=== PATIENT | male | born 1995 | race Caucasian/White ===

== ENCOUNTER 2017-08-11 18:51 | Emergency (ER) | payer MEDICAID, SELFPAY ==
[2017-08-11 18:52] VITALS: BP 158/87; PULSE 78; RESP 16; TEMP 36.8; O2SAT 97; BMI 31.0
--- NOTE | 2017-08-11 20:12 | CT_ITS ---
STUDY: CT ABDOMEN AND PELVIS WITH CONTRAST REASON FOR EXAM: Male, 22 years old. Right lower quadrant pain RADIATION DOSAGE (If Supplied By Facility): CTDIvol = ( 17.62 ) mGy, DLP = ( 690.89 ) mGycm TECHNIQUE: Transaxial images were obtained from the dome of the diaphragm to the symphysis pubis without oral contrast. 100ml ml of Isovue 300 contrast was administered. Sagittal and coronal images were reconstructed. Individualized dose optimization techniques were used for this CT. COMPARISON: May 25, 2015. FINDINGS: The visualized lung bases demonstrate 2 to 3 mm nonspecific peripheral nodules. The visualized portions of the heart are within normal limits. Normal liver. Normal gallbladder and extrahepatic biliary system. Normal spleen. Normal pancreas. Normal bilateral adrenal glands. Mild hydronephrosis of the right kidney right hydroureter. Obstructive stone is noted at the distal right ureter measuring 4 mm. 7 mm cyst in the left kidney. Normal visualized stomach. Normal small intestine. Normal colon. The appendix is not visualized. Normal abdominal aorta. Normal inferior vena cava. Normal retroperitoneum.. Subcentimeter mesenteric nodes. Normal urinary bladder. Small fatty umbilical hernia abdominal wall. Normal osseous structures. CT/Abdomen/Pelvis W IV Cont ONLY IMPRESSION: Right hydronephrosis with hydroureter. Obstructing distal right ureteral stone is noted. Left renal cyst. Small fatty umbilical hernia. Nonspecific peripheral nodular densities in the lung bases. Nonspecific subcentimeter mesenteric nodes. Electronically Signed: Gregor Shirley DO at 21:51 EST Tel [phone], Service support ,
[2017-08-11] MEDS: Ondansetron 4 MG/2 ML Vial IV (20:30)
[2017-08-11 20:34] VITALS: BP 141/76; PULSE 66; RESP 16; O2SAT 97
[2017-08-11 20:54] LABS: Absolute Lymphocyte Count 3.49 X10^3/ul (0.83-4.51); Absolute Neutrophil Count 4.9 X10^3/uL (2.0-7.7); Basophil# 0.06 X10^3/uL; Basophil% 0.7 % (0-1); Eosinophil# 0.14 X10^3/uL; Eosinophils% 1.5 % (0-5); Hematocrit 41.9 % (40-54); Hemoglobin 14.4 g/dl (13.0-16.5); Lymphocyte # 3.49 X10^3/ul (4.0); Lymphocyte % 37.8 % (19-41); Mean Corp Hgb Conc 34.4 g/gl (32-36); Mean Corpuscular Volume 84.3 fL (80-94); Mean Platelet Vol. 9.7 fl (6.2-12.0); Monocyte% 6.5 % (0-10); Neutrophil # 4.93 X10^3/uL (2.7-7.7); Neutrophil % 53.4 % (47-70); Platelet Count 351 K/mm3 (150-450); RBC Distribution Width CV 12.9 % (11.6-14.6); RBC Distribution Width SD 38.9 fl (35.1-43.9); Red Blood Count 4.97 M/mm3 (4.6-6.2); White Blood Count 9.2 K/mm3 (4.4-11.0)
[2017-08-11 20:55] LABS: POSITIVE COUNT NO; POSITIVE DIFFERENTIAL NO; POSITIVE MORPHOLOGY NO
[2017-08-11 21:54] LABS: Bacteria 0 SEEN /hpf (None Seen); Mucous, Urine 0 SEEN /hpf (<or=2+); Squamous Epithelial Cells - UA 0 SEEN /hpf (0-5); White Blood Cells 0 SEEN /hpf (0-5)
[2017-08-11 21:59] LABS: Color, Urine Yellow (Yellow); Glucose, Dipstick Normal (Normal); Ketone-Dipstick Negative (Negative); Leukocyte Esterase-Dipstick Negative /ul (Negative); Nitrite-Dipstick Negative (Negative); Occult Blood-Urine 250 /ul (Negative); Protein-Dipstick Negative (Negative); Specific Gravity, Urine 1.005 (1.002-1.030); Urine Bilirubin Dipstick Negative (Negative); Urine Clarity Clear (Clear); Urine Urobilinogen Normal (Normal)
[2017-08-11 22:07] LABS: Red Blood Cells-Urine 10-25 SEEN /hpf (0-5)
--- NOTE | 2017-08-11 23:00 | ED.DCSUM_ITS ---
- ER Visit Summary Date of Service: 08/11/17 Chief Complaint: Right lower quadrant and side pain History of Present Illness: The patient is a 22 M states last evening he had some discomfort on the side. He now complains of pain that he localizes the right lower quadrant. He states it hurts to cough and walk. Denies dysuria, frequency, urgency or hematuria. He denies history of renal ureterolithiasis. There is no family history of renal ureterolithiasis. Denies history of hernia. He denies history of trauma. He denies fever, chills night sweats. He denies anorexia. Does complain of nausea without vomiting. He denies change in bowel movement. Past medical history negative past surgical history negative Physical Examination: vital signs remarkable blood pressure 141/76. He appears uncomfortable. Head is atraumatic normocephalic. Pupils are equal round reactive. Extraocular muscles are intact. TMs are pearly white with landmarks noted. Nares patent with no drainage. Posterior pharynx without erythema or exudate. Uvula is midline. There is no dysphonia or dysphasia. Trachea is midline. There is no stridor with auscultation of the neck. Heart is regular without murmur, gallop or rub. S1 and S2 are normal. Lungs are clear to auscultation with good movement of air bilaterally. Abdomen is remarkable for tenderness in the right lower quadrant with guarding. He has no CVA tenderness noted. He has a small umbilical defect. There is no evidence of inguinal hernia or inguinal lymphadenopathy. Testes are descended bilaterally with no testicular epididymal tenderness. Cremasteric reflex is positive bilaterally. There is no penile lesions or discharge noted. He is circumcised. He has no CVA tenderness. Test Results: White count is 9.2 thousand with normal differential. UA is unremarkable. He has 5-10 RBCs. There is no evidence infection. CT of the abdomen with IV contrast reveals a distal ureteral stone with hydroureteronephrosis. No other anomalies noted. Emergency Department Course and Treatment: As established he was medicated with 4 mrem of morphine and 4 mg of Zofran. Since he has tenderness that is reproducible right lower quadrant and pain with movement and walking concerned this represents appendicitis. Differential would include ureteral lithiasis and possible hernia. Treatment Plan: Patient was discharged with prescription for Kiln, Naprosyn and Flomax. Disposition: Discharge with outpatient follow-up with urology, Dr. Ortiz Impression: Right sided pain secondary to obstructing ureteral lithiasis with hydronephrosis and ureter This note was generated with [employer] dictation software. It may contain incorrect words, spelling, and punctuation that were not noted in review of the chart prior to signing ED Disposition - Plan for ED Patient: Disposition: Home or Assisted Living Chief Complaint: Male Pain/Injury Instructions: ED Stone Renal W Colic Prescriptions: Hydrocodone Bitart/Apap 5-325 [Kiln 5MG-325MG] 1 tab PO Q4H PRN PRN 5 Days #20 tab PRN Reason: Pain Tamsulosin HCl [Flomax] 0.4 mg PO DAILY #10 cap Naproxen [Naprosyn] 500 mg PO BID #14 tab Referrals: Nilo Heredia MD [Primary Care Provider] - Servando Ortiz MD [STAFF PHYSICIAN] - 5-7 Days
[2017-08-11] MEDS: HYDROcodone Bitartrate/Apap 5/325 Tablet PO (23:16)
[2017-08-11 23:18] VITALS: BP 119/68; PULSE 59; RESP 19; O2SAT 99
== END 2017-08-11 23:19 | disposition home or self-care (01) ==
PROVIDERS: Emergency Provider Emergency Medicine; Family Provider Pediatrics; PCP Pediatrics
DX: N13.2 Hydronephrosis with renal and ureteral calculous obstruction (principal); R10.31 Right lower quadrant pain; E66.9 Obesity, unspecified
CPT/HCPCS: 74177; 81001; 85025; 96374; 96375; 99283; Q9967; A4216; J2405

== ENCOUNTER 2017-08-27 16:14 | Emergency (ER) | payer MEDICAID, SELFPAY ==
[2017-08-27 16:15] VITALS: BP 143/74; PULSE 81; RESP 18; TEMP 36.8; O2SAT 99; BMI 31.8
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
[2017-08-27 18:24] VITALS: PULSE 87; RESP 14; O2SAT 98
== END 2017-08-27 18:24 | disposition home or self-care (01) ==
PROVIDERS: Emergency Provider Emergency Medicine; Family Provider Pediatrics; PCP Pediatrics
DX: S93.402A Sprain of unspecified ligament of left ankle, initial encounter (principal); X58.XXXA Exposure to other specified factors, initial encounter; Y93.9 Activity, unspecified; Y92.9 Unspecified place or not applicable; Z87.81 Personal history of (healed) traumatic fracture
CPT/HCPCS: 73610; 99282; A4216

== ENCOUNTER 2017-10-21 18:49 | Emergency (ER) | payer MEDICAID, SELFPAY ==
[2017-10-21 18:49] VITALS: BP 145/75; PULSE 60; RESP 14; TEMP 36.7; O2SAT 97; BMI 29.0
--- NOTE | 2017-10-21 19:47 | ED.VISSUMM ---
- ER Visit Summary Date of Service: 10/21/17 Chief Complaint: Back pain History of Present Illness: The patient is a 22 M who presents with back pain that began yesterday. Patient states he was lifting when the pain began. Patient denies any specific trauma or injury. Patient states the pain is sharp and localized to the right lower lumbar area. Patient states pain is worse with bending and twisting. Patient denies any paresthesias or weakness. Patient denies any radiation of the pain. Patient denies any bowel or bladder changes. Patient denies any saddle anesthesia. Physical Examination: Vital signs are stable. Patient is afebrile. Patient is in no acute distress. Musculoskeletal exam reveals tenderness and muscle spasm over the right lower lumbar paraspinal muscles. Range of motion was slightly limited in all motions of the lumbar spine secondary to pain. Straight leg raises were negative bilaterally. Strength is 5/5 bilaterally upper and lower extremities. There are no sensory deficits noted. The remaining physical exam is within normal limits. Treatment Plan: Patient was advised that this most likely a muscular strain. Patient was given prescriptions for Naprosyn and Flexeril. Patient was instructed to follow-up with his primary care physician in 7-10 days. Patient understood and was agreeable with the plan. All questions were answered. Disposition: Discharge home Impression: Acute lumbosacral strain This note was generated with [employer] dictation software. It may contain incorrect words, spelling, and punctuation that were not noted in review of the chart prior to signing ED Disposition - Plan for ED Patient: Disposition: Home or Assisted Living Chief Complaint: Back Diagnosis: Acute lumbar myofascial strain Instructions: ED Sprain Strain Lumbar Prescriptions: Cyclobenzaprine [Flexeril] 10 mg PO QHS PRN PRN #20 tab PRN Reason: Muscle Spasm Naproxen [Naprosyn] 500 mg PO BID PRN #20 tab Referrals: Nilo Heredia MD [Primary Care Provider] -
[2017-10-21 19:56] VITALS: BP 135/65; PULSE 69; RESP 18; O2SAT 97
== END 2017-10-21 19:57 | disposition home or self-care (01) ==
PROVIDERS: Emergency Provider Emergency Medicine; Family Provider Pediatrics; PCP Pediatrics
DX: S39.012A Strain of muscle, fascia and tendon of lower back, initial encounter (principal); X50.9XXA Other and unspecified overexertion or strenuous movements or postures, initial encounter; Y93.9 Activity, unspecified; Y92.9 Unspecified place or not applicable; Z90.89 Acquired absence of other organs
CPT/HCPCS: 99282

== ENCOUNTER 2017-10-23 20:25 | Emergency (ER) | payer MEDICAID, SELFPAY ==
[2017-10-23 20:26] VITALS: BP 137/67; PULSE 73; RESP 18; TEMP 36.7; O2SAT 98; BMI 32.4
--- NOTE | 2017-10-23 20:41 | RAD_ITS ---
STUDY: X-RAY - LEFT TIBIA AND FIBULA REASON FOR EXAM: Male, 22 years old. Remote fracture, pain TECHNIQUE: 2 view(s) of the tibia and fibula were obtained. COMPARISON: None. FINDINGS: There is healed fracture deformity of the distal fibular shaft. There is no acute fracture. There is no osseous destruction. There is no periosteal reaction. RAD/Tibia & Fibula 2 Views IMPRESSION: Healed fracture distal fibular shaft No acute fracture Electronically Signed: Vincent Diaz MD at 21:17 EDT Tel , Service support ,
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
--- NOTE | 2017-10-23 21:40 | US_ITS ---
STUDY: VENOUS DOPPLER ULTRASOUND - LEFT LOWER EXTREMITY REASON FOR EXAM: Male, 22 years old. LT LATERAL CALF PAIN TECHNIQUE: Ultrasound evaluation of the deep vein system to include macario-scale imaging and compression was performed. Macario-scale imaging and Doppler sonographic evaluation, including duplex spectral analysis and qualitative color flow sonography, was performed. COMPARISON: None. FINDINGS: Common Femoral Vein: Normal compression, spontaneity and augmentation. Normal color Doppler. Common Femoral Vein/Greater Saphenous Junction: Normal compression, spontaneity and augmentation. Normal color Doppler. Deep Femoral Vein: Normal compression, spontaneity and augmentation. Normal color Doppler. Femoral Proximal: Normal compression, spontaneity and augmentation. Normal color Doppler. Femoral Middle: Normal compression, spontaneity and augmentation. Normal color Doppler. Femoral Distal: Normal compression, spontaneity and augmentation. Normal color Doppler. Popliteal Vein: Normal compression, spontaneity and augmentation. Normal color Doppler. Posterior Tibial Vein: Normal compression, spontaneity and augmentation. Normal color Doppler. Peroneal Vein: Normal compression, spontaneity and augmentation. Normal color Doppler. US/Venous Duplex Imag/Limited/Uni IMPRESSION: Normal venous Doppler ultrasound of the lower extremity. Electronically Signed: Eagle Flores MD at 22:11 EDT , Service support ,
--- NOTE | 2017-10-23 22:17 | ED.DEP ---
ED Disposition - Plan for ED Patient: Chief Complaint: Lower Extremity Injury Instructions: ED Contusion Lower Ext Prescriptions: Naproxen [Naprosyn] 500 mg PO BID PRN #20 tablet Referrals: Nilo Heredia MD [Primary Care Provider] -
[2017-10-23 22:42] VITALS: RESP 16
== END 2017-10-23 22:44 | disposition home or self-care (01) ==
LOC: ED 21:10
PROVIDERS: Emergency Provider Emergency Medicine; Family Provider Pediatrics; PCP Pediatrics
DX: M79.662 Pain in left lower leg (principal); Z87.81 Personal history of (healed) traumatic fracture
CPT/HCPCS: 73590; 93971; 99282

== ENCOUNTER 2017-11-12 16:10 | Emergency (ER) | payer MEDICAID, SELFPAY ==
[2017-11-12 16:10] VITALS: BP 163/74; PULSE 78; RESP 16; TEMP 36.8; O2SAT 99; BMI 32.3
--- NOTE | 2017-11-12 16:45 | RAD_ITS ---
STUDY: X-RAY - RIGHT KNEE REASON FOR EXAM: Male, 22 years old. Pain. Recent pop while dancing TECHNIQUE: 4 view(s) of the knee. COMPARISON: None. FINDINGS: Normal visualized distal femur. Normal visualized proximal tibia and fibula. Normal proximal tibiofibular articulation. There is no demonstrated fracture. Normal medial femorotibial compartment. Normal lateral femorotibial compartment. Normal patellofemoral articulation. The soft tissue structures are unremarkable. RAD/Knee 4 or More Views IMPRESSION: Normal x-ray examination of the knee. Electronically Signed: Devon De Dios MD at 17:38 EDT , Service support ,
--- NOTE | 2017-11-12 17:02 | ED.VISSUMM ---
- ER Visit Summary Date of Service: 11/12/17 Chief Complaint: [Right knee injury] History of Present Illness: The patient is a 22 M [presents the emergency department with injury to the right knee that occurred about a week ago. Patient states that he was dancing when he felt a couple of pops in his right knee. Patient had discomfort ever since that time especially with bending the knee. Patient has been able to ambulate without too much difficulty. Patient rates his pain a 6 out of 10.] Physical Examination: HEENT-PERRLA, EOMI. Cranial nerves II through XII grossly intact. TMs clear. Mucous membranes moist. No adenopathy. Cardiovascular-regular rate and rhythm without murmur or ectopy Lungs-clear to auscultation, chest wall stable without crepitus or subcu emphysema Abdomen-normoactive bowel sounds, soft, nontender, no rebound or rigidity, no peritoneal signs. Extremities-intact ?4, normal range of motion, normal pulses, atraumatic[]. Right knee-patient has minor joint effusion. Patient has mild diffuse tenderness to the medial lateral joint lines. Skin normal range of motion through flexion extension of the knee. Patient is ligamentously stable. Neurovascularly intact distally. Test Results: [X-rays of the right knee read by myself as no acute fractures] Emergency Department Course and Treatment: [Patient will be given a knee immobilizer and he refused crutches] Treatment Plan: [Discharged home in stable condition]. Patient will be referred to orthopedics for follow-up.. Patient understands he may need further imaging such as possibly MRI to evaluate further. Patient understands I cannot rule out a ligamentous or meniscal injury. Disposition: Discharged home stable condition [] Impression: [Right knee sprain-possible internal derangement] This note was generated with [employer] dictation software. It may contain incorrect words, spelling, and punctuation that were not noted in review of the chart prior to signing ED Disposition - Plan for ED Patient: Chief Complaint: Lower Extremity Injury Referrals: Nilo Heredia MD [Primary Care Provider] -
--- NOTE | 2017-11-12 17:05 | ED.DEP ---
ED Disposition - Plan for ED Patient: Chief Complaint: Lower Extremity Injury Instructions: ED Meniscal Injury Knee Poss Prescriptions: Naproxen [Naprosyn] 500 mg PO BID PRN #20 tab Referrals: Nilo Heredia MD [Primary Care Provider] - Lincoln Burt DO [STAFF PHYSICIAN] - 5-7 Days
[2017-11-12 17:26] VITALS: BP 126/57; PULSE 62; RESP 16; O2SAT 100
== END 2017-11-12 17:27 | disposition home or self-care (01) ==
LOC: ED 17:24
PROVIDERS: Emergency Provider Emergency Medicine; Family Provider Pediatrics; PCP Pediatrics
DX: S83.91XA Sprain of unspecified site of right knee, initial encounter (principal); X50.1XXA Overexertion from prolonged static or awkward postures, initial encounter; Y93.41 Activity, dancing; Y92.9 Unspecified place or not applicable
CPT/HCPCS: 73564; 99282

== ENCOUNTER 2017-11-13 18:25 | Emergency (ER) | payer OTHER, MEDICAID, SELFPAY ==
[2017-11-13 18:26] VITALS: BP 147/71; PULSE 75; RESP 18; TEMP 36.9; O2SAT 98; BMI 32.2
[2017-11-13] MEDS: Naproxen 500 MG Tablet PO (18:59)
--- NOTE | 2017-11-13 19:41 | ED.DCSUM_ITS ---
- ER Visit Summary Date of Service: 11/13/17 Chief Complaint: Laceration History of Present Illness: The patient is a [address] Heredia. He is right-hand dominant. He cut his left index and ring fingers with a bread knife at work. He reports he has a sharp, throbbing pain is 3 out of 10 with movement. He denies any paresthesias distally. His tetanus is up-to-date. Physical Examination: Vitals: Stable. Afebrile. General: Well-nourished and well-developed. Head: Normocephalic atraumatic. Neck: Supple, no lymphadenopathy. No JVD. Nontender. Cardiovascular: Regular rate and rhythm. No murmurs. Respiratory: No respiratory distress. Clear to auscultation bilaterally. Abdominal: Soft, nontender, nondistended, normal bowel sounds. No guarding, rebound, or peritoneal signs. Back: Nontender. Extremities: Avulsion of the most superficial portion of the distal phalanx of his left middle finger. This does not extend into the dermis. He has a 1.5 cm laceration over the distal phalanx of his index finger. There is no active bleeding. He is neurovascular intact distally.. Skin: Normal color, no rash. Neurologic: Alert and oriented ?3. Cranial nerves II through XII are intact. Normal strength and sensation. Psych: Normal affect. Emergency Department Course and Treatment: Patient was treated with naproxen. He had his index finger repaired. He tolerated it well. Treatment Plan: Patient be discharged instructions to follow-up [facility] in 10-14 days for suture removal. Return to the emergency department for any worsening symptoms. Disposition: To home in improved and stable condition. Impression: 1. Laceration left index finger, 1.5 cm, repaired. 2. Avulsion left middle fingertip. Procedure note: Wound was cleansed with chlorhexidine soap. Anesthetized with 1% lidocaine without epinephrine. Copiously irrigated with normal saline. Wound was explored there is no foreign material present. It was closed with 3 simple interrupted 4- 0 ethilon sutures. The patient tolerated it well. This note was generated with [employer] dictation software. It may contain incorrect words, spelling, and punctuation that were not noted in review of the chart prior to signing ED Disposition - Plan for ED Patient: Disposition: Home or Assisted Living Chief Complaint: Laceration Instructions: ED Laceration Hand Referrals: [facility] [GROUP OF PHYSICIANS] - 10-14 Days suture removal
[2017-11-13 19:56] VITALS: BP 122/65; PULSE 68; RESP 17; O2SAT 98
== END 2017-11-13 20:00 | disposition home or self-care (01) ==
LOC: ED 18:50
PROVIDERS: Emergency Provider Emergency Medicine; Family Provider Pediatrics; PCP Pediatrics
DX: S61.211A Laceration without foreign body of left index finger without damage to nail, initial encounter (principal); S61.213A Laceration without foreign body of left middle finger without damage to nail, initial encounter; W26.0XXA Contact with knife, initial encounter; Y93.9 Activity, unspecified; Y92.9 Unspecified place or not applicable; Y99.0 Civilian activity done for income or pay
CPT/HCPCS: 12001; 99283

== ENCOUNTER 2017-11-19 19:00 | Emergency (ER) | payer MEDICAID, SELFPAY ==
--- NOTE | 2017-11-19 19:00 | DT_ITS ---
This patient was seen during an EMR downtime November 17, 2017 - November 24, 2017. This patient may have a combination of paper and electronic documentation or all paper documentation. All documentation is viewable within the e-chart portion of [employer] for each patient visit.
== END 2017-11-19 20:02 | disposition home or self-care (01) ==
LOC: ED 11-20 14:58
PROVIDERS: Emergency Provider Emergency Medicine; Family Provider Pediatrics; PCP Pediatrics
DX: T81.4XXA Infection following a procedure, initial encounter (principal)
CPT/HCPCS: 99284

== ENCOUNTER 2017-12-29 11:12 | Day surgery (SDC) | payer MEDICAID, SELFPAY ==
[2017-12-29 11:30] VITALS: BP 142/75; PULSE 78; RESP 16; TEMP 36.8; O2SAT 99; BMI 32.1
[2017-12-29] MEDS: Cefazolin 2 GM in 0.9% Normal Saline 100 ML IV (13:08)
--- NOTE | 2017-12-29 13:14 | DCINST_ITS ---
Discharge Diet: No Restrictions Discharge Activity: May Not Drive Return to work on:: 01/13/18 May shower in (days): 3 Ice area for (Minutes): 20 - Ice area for 20 minutes each hour while awake Weight Bearing Status: Weight bearing as tolerated Keep extremity elevated above heart level: Operative Extremity Call your doctor if your incision/area has: Continuous Slow Oozing, Sudden Increased Bleeding, Increased Pain/ Swelling, Increased Redness, Foul Smelling Discharge Call your doctor if you observe: Fever of 101 or Higher, Coldness, Increased Pain, Numbness or Tingling, Change in Color Suture Line Care: Avoid Pulling/Pushing Change Dressing in (Days):: 3 Remove Dressing in (days):: 3 Cleanse incision/area with: Soap & Water - after 3 days Allergies/Adverse Reactions: Allergies tramadol Allergy (Verified 12/22/17 11:24) Rash Medications to take at Discharge Naproxen [Naprosyn] 500 mg PO BID PRN #20 tab 11/12/17 Test Results: Test results from this visit will be discussed in further detail at your follow- up appointment, if applicable. Please Follow Up With: Lincoln Burt DO When: as scheduled
[2017-12-29] MEDS: Bupiv/Epi 0.5% Mpf 30 ML Vial (13:56)
--- NOTE | 2017-12-29 13:58 | OP.PCM_ITS ---
Report of Operation Date of Procedure: 12/29/17 Pre-Operative Diagnosis: Posterior horn medial meniscus tear right knee Post-Operative Diagnosis: Same Surgery/Procedure Performed:: Right knee arthroscopy with partial medial meniscectomy Description of Surgical Findings:: Large incarcerated radial tear posterior horn Type of Anesthesia:: General Anesthesiologist: Clement Paredes Specimen's removed: meniscus Estimated Blood Loss (mL): 5 Fluids Replaced: See anesthesia report Description of Procedure: Indications: Robert is a 22-year-old male who injured his knee. Preoperative MRI reveals large tear of the posterior horn of the medial meniscus. Patient has failed conservative measures and at this point has elected to undergo the above procedure. Procedure description: The patient was greeted in the preoperative area. The right knee was marked with surgical marker. Preoperative antibiotics were administered. The patient was then taken to the operating suite and placed in a supine position on operating room table. After adequate anesthesia was obtained and airway was secured a well-padded tourniquet was placed on patient' s affected extremity. Leg was then prepped and draped in usual sterile fashion. Surgical timeout was performed and confirmed with all present and surgery was commenced. Standard anteromedial anterolateral portals were made and a 30? arthroscope was then inserted into the knee. Patient had mild lateral patellar tracking. No loose bodies were noted in the medial or lateral gutters. Medial compartment was then entered which revealed a large tear of the posterior horn of the medial meniscus with a radial type flap tear large portion of this was incarcerated in the intercondylar notch behind the posterior condyle of the medial femoral condyle. This was then trimmed and the torn portion was removed creating a nice stable meniscal remnant was then smoothed with the shaver. Total of 80% of the posterior horn of the medial meniscus was removed. At this point all instruments were removed. Arthroscopic portals were closed in a standard fashion. 30 cc of 0.5% Marcaine was then injected into the knee. Well-padded nonadherent dressing was applied and secured with an Jw wrap. - Admit VTE Documentation VTE Present on Admission: Yes VTE Mechan Device Prophylaxis: SCD's, Thigh High MARY Hose VTE Pharm Prophylaxis ordered?: No Reason prophylaxis not ordered:: Procedure Not Indicated
[2017-12-29 14:12] VITALS: BP 136/64; BP 142/75; PULSE 88; RESP 18; TEMP 36; O2SAT 92
[2017-12-29 14:15] VITALS: BP 142/75; BP 147/50; PULSE 101; PULSE 96; RESP 16; O2SAT 92; O2SAT 93
[2017-12-29 14:30] VITALS: BP 130/65; BP 142/75; PULSE 94; RESP 16; O2SAT 98
[2017-12-29 14:45] VITALS: BP 136/61; BP 142/75; PULSE 90; RESP 18; TEMP 36.5; O2SAT 97
[2017-12-29] MEDS: HYDROcodone Bitartrate/Apap 5/325 Tablet PO (14:58)
[2017-12-29 16:36] VITALS: BP 123/64; BP 142/75; PULSE 93; RESP 16; TEMP 36.5; O2SAT 100
== END 2017-12-29 16:20 | disposition home or self-care (01) ==
LOC: SDC 11:13 → AC 11:14
PROVIDERS: Family Provider Pediatrics; PCP Pediatrics; Visit Provider Orthopaedic Surgery
PROC: (CPT 29870; principal; 2017-12-29 12:55)
DX: S83.241A Other tear of medial meniscus, current injury, right knee, initial encounter (principal); X58.XXXA Exposure to other specified factors, initial encounter; Y93.41 Activity, dancing; Y92.9 Unspecified place or not applicable
CPT/HCPCS: 01400; 29881; J7120; J2405

== ENCOUNTER 2018-02-20 19:44 | Emergency (ER) | payer MEDICAID, SELFPAY ==
[2018-02-20 19:46] VITALS: BP 138/71; PULSE 73; RESP 16; TEMP 37; O2SAT 97; BMI 31.4
--- NOTE | 2018-02-20 20:26 | ED.VISSUMM ---
- ER Visit Summary Date of Service: 02/20/18 Chief Complaint: Right wrist pain and back pain History of Present Illness: The patient is a [address] Heredia. He reports she has right wrist pain and began today. He describes a stabbing, aching pain is now 10 hours and 710 currently. Is worsened by bending or movement. Is relieved by ice and Aleve. He denies any trauma. No fall, MVA, or change in activity. Patient reports that his low back pain is been present for 2 months. His sharp pain that is 5 out of 10 currently. Zeta 10 with movement. There is no numbness, tingling, or weakness in his legs. No groin numbness. No problems with his bowels or his bladder. No radiation of this pain. Physical Examination: Vitals: Stable. Afebrile. General: A&O x 3. NAD. Cardiovascular exam: Regular rate and rhythm, no murmur, rub or gallop. Respiratory exam: Clear to auscultation bilaterally. No wheezes or stridor. Abdominal exam: Soft, nontender, nondistended, normal bowel sounds. No peritoneal signs. Back: Diffuse moderate tenderness to palpation over the lumbar spine and the paraspinous musculature in the lumbar region. No point tenderness. Negative straight leg bilaterally. 5/5 DF, PF, EHL bilaterally. Normal sensation to light touch throughout. Extremity: Mild tenderness palpation over the right ulnar styloid. No soft tissue swelling. No contusion. Full range of motion without any difficulty.. Test Results: Patient refused x-rays. Emergency Department Course and Treatment: Patient was treated with naproxen. Treatment Plan: I had a prolonged discussion with the patient about the use of opiate-based medications. I do not feel that these are indicated or in his best interest. He will be discharged instructions use Tylenol and/or ibuprofen for pain. Follow-up with Dr. Heredia in 3-5 days if not improving. I suggested a physical therapy would be the most reasonable treatment for his back pain potentially his wrist pain as well. He will be placed in a Velcro wrist splint. Disposition: To home in improved and stable condition. Impression: 1. Right wrist sprain. 2. Low back pain, chronic. This note was generated with [employer]ation software. It may contain incorrect words, spelling, and punctuation that were not noted in review of the chart prior to signing ED Disposition - Plan for ED Patient: Disposition: Home or Assisted Living Chief Complaint: Upper Extremity Injury Instructions: ED Sprain Wrist Prescriptions: Naproxen [Naprosyn] 500 mg PO BID #20 tablet Referrals: Nilo Heredia MD [Primary Care Provider] - 1 Week if not improving
[2018-02-20] MEDS: Naproxen 250 MG Tablet 500 MG PO (20:41)
== END 2018-02-20 20:43 | disposition home or self-care (01) ==
PROVIDERS: Emergency Provider Emergency Medicine; Family Provider Pediatrics; PCP Pediatrics
DX: S63.501A Unspecified sprain of right wrist, initial encounter (principal); X58.XXXA Exposure to other specified factors, initial encounter; Y93.9 Activity, unspecified; Y92.9 Unspecified place or not applicable; M54.5 Low back pain; G89.29 Other chronic pain
CPT/HCPCS: 99284

== ENCOUNTER 2018-03-02 19:33 | Emergency (ER) | payer MEDICAID, SELFPAY ==
[2018-03-02 19:34] VITALS: BP 162/77; PULSE 88; RESP 14; TEMP 35.8; O2SAT 98; BMI 32.1
[2018-03-02 19:52] VITALS: BP 130/71; PULSE 91; RESP 16; O2SAT 98
--- NOTE | 2018-03-02 20:04 | ED.RN ---
RN CALLED FOR EKG, PULLED OLD EKGS FOR
--- NOTE | 2018-03-02 20:05 | EKG12_ITS ---
Test Reason : CP Blood Pressure : / mmHG Vent. Rate : 087 BPM Atrial Rate : 087 BPM P-R Int : 150 ms QRS Dur : 094 ms QT Int : 334 ms P-R-T Axes : 048 013 -15 degrees QTc Int : 401 ms Normal sinus rhythm with sinus arrhythmia Normal ECG Confirmed by ROSANNA CONTRERAS, TRANG ([id number]), editor magazine AMY AGUILAR ([id number]) on 03/04/2018 2:12:54 PM Referred By: MARAH Confirmed By:TRANG MARTE MD
--- NOTE | 2018-03-02 20:08 | RAD_ITS ---
STUDY: X-RAY CHEST REASON FOR EXAM: Male, 22 years old. Left-sided chest pain TECHNIQUE: AP portable COMPARISON: None. FINDINGS: There is nonspecific elevation of right hemidiaphragm with minor basilar atelectasis. Left lung is clear. There is no demonstrated pleural abnormality. Normal size heart. Normal mediastinum and alcides. Normal visualized pulmonary arteries. Normal visualized aortic arch and descending thoracic aorta. Normal visualized thoracic spine. Normal visualized ribs, clavicles, and shoulders. There is no demonstrated abnormality of the visualized soft tissue structures of the upper abdomen. RAD/Chest 1 View (Portable) IMPRESSION: Elevated right hemidiaphragm and mild basilar atelectasis Electronically Signed: Duglas Cheung MD at 20:40 EDT , Service support ,
[2018-03-02] MEDS: Ondansetron 4 MG/2 ML Vial IV (20:17)
[2018-03-02 20:37] LABS: Absolute Lymphocyte Count 1.62 X10^3/ul (0.83-4.51); Absolute Neutrophil Count 2.9 X10^3/uL (2.0-7.7); Basophil# 0.08 X10^3/uL; Basophil% 1.5 % (0-1); Eosinophil# 0.06 X10^3/uL; Eosinophils% 1.2 % (0-5); Hematocrit 41.5 % (40-54); Hemoglobin 14.4 g/dl (13.0-16.5); Lymphocyte # 1.62 X10^3/ul (4.0); Lymphocyte % 31.2 % (19-41); Mean Corp Hgb Conc 34.7 g/gl (32-36); Mean Corpuscular Volume 83.7 fL (80-94); Mean Platelet Vol. 9.5 fl (6.2-12.0); Monocyte# 0.52 X10^3/uL; Neutrophil # 2.91 X10^3/uL (2.7-7.7); Neutrophil % 55.9 % (47-70); Platelet Count 295 K/mm3 (150-450); RBC Distribution Width CV 12.5 % (11.6-14.6); RBC Distribution Width SD 37.9 fl (35.1-43.9); Red Blood Count 4.96 M/mm3 (4.6-6.2); White Blood Count 5.2 K/mm3 (4.4-11.0)
[2018-03-02 20:38] LABS: POSITIVE COUNT NO; POSITIVE DIFFERENTIAL NO; POSITIVE MORPHOLOGY NO
[2018-03-02 20:59] LABS: D-Dimer Quantitative (DVT/PE) 0.32 FEU/ug/m (0.27-0.49)
[2018-03-02 21:02] LABS: Anion Gap 6 (5-15); BUN 10 mg/dL (7-18); BUN/Creat Ratio 8.5 RATIO (10-20); Calcium,Total 8.6 mg/dL (8.5-10.1); Chloride 106 mmol/L (98-107); Creatinine, Serum 1.17 mg/dL (0.70-1.30); EST Glomerular Filtration Rate 83 mL/min (>60); Est Glom Filt Rate - Afr Amer 101 mL/min (>60); Estimated Creatinine Clearance 93.37 ml/min; Glucose 101 mg/dL (74-106); Potassium 3.6 mmol/L (3.5-5.1); Sodium Level 139 mmol/L (136-145)
[2018-03-02 22:04] VITALS: PULSE 91; RESP 23; O2SAT 96
--- NOTE | 2018-03-02 22:07 | ED.VISSUMM ---
- ER Visit Summary Date of Service: 03/02/18 Chief Complaint: Chest pain History of Present Illness: The patient is a 22 M with left-sided chest pain that started early this morning. Nothing seemed to bring on or make it worse. No radiation of the pain. Associate with nausea, vomiting, and some shortness of breath. He never had anything like this in the past. No significant medical history. He did have a knee operation about 2 months ago where they repaired his meniscus. No history of DVT or PE. No history of aortic disease. He had a subjective fever earlier today. No cough or sputum. Physical Examination: Vital signs unremarkable. Afebrile. No acute distress. Alert and oriented. Sitting and breathing comfortably. Heart regular rate and rhythm. Lungs clear bilaterally. Abdomen soft and nontender. Extremities nontender with no edema. Skin appears normal in color. Test Results: EKG showed sinus rhythm at a rate of 87. No sign of acute ischemia or infarction pattern. CBC and BMP normal. Troponin normal. D-dimer negative. Chest x-ray showed an elevated right hemidiaphragm with mild basilar atelectasis but no other abnormal findings. Emergency Department Course and Treatment: Patient treated with Zofran and then Motrin. His workup was unremarkable. EKG and troponin unremarkable. No significant risks for ACS. D-dimer was negative making PE and dissection extremely unlikely. Nothing to suggest infection or sepsis. No GI issues. No musculoskeletal issues. Patient will take Motrin as needed for pain. Zofran as needed for nausea. Follow-up with primary care. Treatment Plan: As above Disposition: Discharged Impression: 1. Chest pain unclear etiology This note was generated with [employer] dictation software. It may contain incorrect words, spelling, and punctuation that were not noted in review of the chart prior to signing ED Disposition - Plan for ED Patient: Chief Complaint: Chest Pain Referrals: Nilo Heredia MD [Primary Care Provider] -
--- NOTE | 2018-03-02 22:10 | ED.DEP ---
ED Disposition - Plan for ED Patient: Chief Complaint: Chest Pain Instructions: ED Chest Pain Atypical Unkn Cause Prescriptions: Ondansetron [Zofran Odt] 4 mg PO Q8H PRN PRN #10 tab PRN Reason: Nausea Ibuprofen [Motrin] 800 mg PO TID PRN PRN #20 tab PRN Reason: Pain Referrals: Nilo Heredia MD [Primary Care Provider] -
[2018-03-02] MEDS: Ibuprofen 600 MG Tablet PO (22:20)
== END 2018-03-02 22:23 | disposition home or self-care (01) ==
LOC: ED 20:21
PROVIDERS: Emergency Provider Emergency Medicine; Family Provider Pediatrics; PCP Pediatrics
DX: R07.9 Chest pain, unspecified (principal); R11.2 Nausea with vomiting, unspecified; R06.00 Dyspnea, unspecified; J98.11 Atelectasis
CPT/HCPCS: 71045; 80048; 84484; 85025; 85379; 93005; 96374; 99285; A4216; J2405

== ENCOUNTER 2018-04-29 12:52 | Emergency (ER) | payer OTHER, MEDICAID, SELFPAY ==
[2018-04-29 12:55] VITALS: BP 134/70; PULSE 85; RESP 17; TEMP 36.7; O2SAT 98; BMI 30.5
--- NOTE | 2018-04-29 14:42 | ED.VISSUMM ---
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 Notes that the testicle itself is not painful and has not been. He states that the pain seems to have gotten worse during the night. He states the testicle itself is not painful. He has no urinary symptoms. He denies any bulging. No prior history of this. Physical Examination: Afebrile vital signs stable Gen: Well-nourished well-developed Head: Normocephalic atraumatic Eyes: Perrl EOMI ENT: TMs clear no rhinorrhea moist mucous membranes Neck: Supple no lymphadenopathy no JVD nontender CVS: Regular rate rhythm no murmurs normal S1-S2 Respiratory: No distress clear to auscultation bilaterally chest nontender Abdomen: Soft nontender nondistended normal bowel sounds no masses : Patient is circumcised. The testicle is nontender. There is no epididymal tenderness. There is no fullness at the inguinal canal. No change with Valsalva. Back: Nontender Extremity: Nontender no edema Skin: Normal color no rash Neuro: alert orientated ?3 CN II-XII intact normal strength sensation reflexes gait cerebellar Psych: Normal affect normal mood Emergency Department Course and Treatment: We will treat this as an inguinal strain. I do not palpate any hernia at the current time. The testicle is nontender. He will be placed on lifting restriction. He will follow-up with [facility] care Impression: 1. Inguinal strain This note was generated with [employer] dictation software. It may contain incorrect words, spelling, and punctuation that were not noted in review of the chart prior to signing ED Disposition - Plan for ED Patient: Disposition: Home or Assisted Living Chief Complaint: Male Pain/Injury Instructions: ED Hernia Inguinal Referrals: [facility] [GROUP OF PHYSICIANS] - 2 Days
[2018-04-29 14:59] VITALS: BP 136/79
== END 2018-04-29 15:00 | disposition home or self-care (01) ==
LOC: ED 14:53
PROVIDERS: Emergency Provider Emergency Medicine; Family Provider Pediatrics; PCP Pediatrics
DX: S39.011A Strain of muscle, fascia and tendon of abdomen, initial encounter (principal); X50.0XXA Overexertion from strenuous movement or load, initial encounter; Y93.9 Activity, unspecified; Y92.9 Unspecified place or not applicable
CPT/HCPCS: 99282

== ENCOUNTER 2018-11-29 11:01 | Emergency (ER) | payer MEDICAID, SELFPAY ==
[2018-05-04 16:54] VITALS: BMI 30.5
[2018-11-29 11:04] VITALS: BP 139/86; PULSE 91; RESP 13; TEMP 36.5; O2SAT 98; BMI 35.3
--- NOTE | 2018-11-29 11:18 | ED.DCSUM_ITS ---
History of Present Illness <Jeffery Anguiano - Last Filed: 11/29/18 11:26> Informant: Patient Onset: Yesterday Context: Gradual Onset Timing: Continuous Quality: aching Location: right ear Current Severity: Moderate Maximum Severity: Severe Worsened by: nothing Relieved by: nothing Associated Symptoms: ear drainage, decreased hearing Narrative: 23-year-old male who denies any medical history presents with right ear pain. Patient recently returned from vacation a couple of days ago where he was swimming in the ocean in the pool and over the past 2 days has had progressively worsening pain and drainage and redness to his right ear. No headache or dizziness. No decreased hearing. No vomiting. No sore throat or congestion. Prior similar symptoms: Yes Recent Illness/Hospitalization: No <Eddie Nance - Last Filed: 11/29/18 11:28> Chief Complaint: Ear Problem Past Medical History <Jeffery Anguiano - Last Filed: 11/29/18 11:26> Prior records reviewed: Yes Smoking Status: Never smoker <GoyoEddie - Last Filed: 11/29/18 11:28> - Allergies and Home Meds Allergies/Adverse Reactions: Allergies No Known Allergies Allergy (Verified 11/29/18 11:04) Primary Care Physician: Nilo Heredia MD [Primary Care Provider] - Review of Systems All systems negative except as indicated General: Denies: Chills, Fever ENT: Reports: Right ear pain. Denies: Bilateral ear pain, Rhinorrhea, Sore throat Cardiovascular: Denies: Chest pain Respiratory: Denies: Dyspnea, Cough <GoyoEddie - Last Filed: 11/29/18 11:28> Physical Exam Vital Signs/Narrative: Vital Signs Temp Pulse Resp BP Pulse Ox 11/29/18 11:04 97.7 F L 91 13 139/86 H 98 <Jeffery Anguiano - Last Filed: 11/29/18 11:26> Vital Signs/Narrative: Vital Signs Temp Pulse Resp BP Pulse Ox 11/29/18 11:04 97.7 F L 91 13 139/86 H 98 Inital Vital Signs reviewed: Yes General: Well nourished, Well developed, No Acute Distress Head: Normocephalic, Atraumatic Eyes: Perrl, EOMI ENT: Moist mucous membranes, No rhinorrhea, - - Patient has purulent drainage and swelling and redness of the right external ear canal, with difficulty visualizing tympanic membrane secondary to this. There is no mastoid tenderness or redness. Left external canal and tympanic membrane are both normal.. 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
== END 2018-11-29 11:35 | disposition home or self-care (01) ==
LOC: ED 11:29
PROVIDERS: Emergency Provider Physician Assistant Medical
DX: H60.91 Unspecified otitis externa, right ear (principal)
CPT/HCPCS: 99282

== ENCOUNTER 2019-10-06 22:14 | Emergency (ER) | payer MEDICAID, SELFPAY ==
[2019-10-06 22:15] VITALS: BP 163/88; PULSE 99; RESP 20; TEMP 35.8; O2SAT 98; BMI 36.2
--- NOTE | 2019-10-06 22:39 | CT_ITS ---
STUDY: CT BRAIN WITH AND WITHOUT CONTRAST REASON FOR EXAM: Male, 24 years old. HEADACHE X 2 HRS,PT HAVING INCREASED HEADACHES, NAUSEA, DIZZINESS AND RINGING IN EARS X 2 MONTHS RADIATION DOSAGE (If Supplied By Facility): CTDIvol = ( 44.99 ) mGy, DLP = ( 1580.97 ) mGycm TECHNIQUE: Transaxial CT imaging of the brain was performed pre and post contrast administration. The examination was performed with intravenous administration of 50ML ISOVUE 370. Individualized dose optimization techniques were used for this CT. COMPARISON: None. FINDINGS: Normal soft tissue structures. Normal calvarium. There is left middle ear and mastoid opacification. Normal size ventricles and extra-axial spaces for the patient''s age. Normal white matter tracts of the cerebral hemispheres. Normal basal ganglia and thalami. Normal brainstem. Normal cerebellum. There is no intracranial hemorrhage. There are no findings of an acute ischemic infarction. There is no mass or abnormal enhancement. Normal visualized paranasal sinuses. CT/Brain/Head W/WO Contrast IMPRESSION: Normal unenhanced and enhanced CT scan of the brain. Left otomastoiditis. Electronically Signed: Devon De Dios MD at 23:40 EDT , Service support ,
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
[2019-10-06] MEDS: 0.9% Normal Saline 1,000 ML 1000 ML IV (22:58)
[2019-10-06] MEDS: Metoclopramide 10 MG/2 ML Vial IV (22:58)
[2019-10-06] MEDS: Ketorolac 30 MG/ML Syringe IV (22:58)
[2019-10-06] MEDS: DiphenhydrAMINE 50 MG/ML Syringe 25 MG IV (22:59)
--- NOTE | 2019-10-07 00:03 | ED.DEP ---
ED Disposition - Plan for ED Patient: Instructions: ED, Migraine (Classical) Referrals: Care Physician,No Primary [NON-STAFF] - Clement Farris MD [STAFF PHYSICIAN] - 3-5 Days
[2019-10-07] MEDS: dexAMETHasone 10 MG/ML Vial IV (00:15)
== END 2019-10-07 00:18 | disposition home or self-care (01) ==
LOC: ED 22:52
PROVIDERS: Emergency Provider Emergency Medicine; PCP Pediatrics
DX: R51 Headache (principal); H93.13 Tinnitus, bilateral; H53.8 Other visual disturbances; H53.149 Visual discomfort, unspecified; R11.0 Nausea; H70.92 Unspecified mastoiditis, left ear; Z96.22 Myringotomy tube(s) status
CPT/HCPCS: 70470; 96361; 96374; 96375; 99283; J7030; Q9967; A4216

== ENCOUNTER 2019-10-24 17:27 | Emergency (ER) | payer MEDICAID, SELFPAY ==
[2019-10-24 17:28] VITALS: BP 146/106; PULSE 93; RESP 17; TEMP 36.1; O2SAT 98; BMI 36.8
--- NOTE | 2019-10-24 17:39 | ED.VISSUMM ---
- ER Visit Summary Date of Service: 10/24/19 Chief Complaint: Back pain History of Present Illness: The patient is a 24 M with no primary care physician. 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 States is her pain is 10 of 10 severity. Is worsened by movement and squatting. Is relieved by laying down and Tylenol. There is no radiation to his legs. No numbness or weakness in his legs. No problems with his bowels or his bladder. No groin numbness. Patient does not have any red flags. Physical Examination: Vitals: Stable. Afebrile. General: A&O x 3. NAD. Cardiovascular exam: Regular rate and rhythm, no murmur, rub or gallop. Respiratory exam: Clear to auscultation bilaterally. No wheezes or stridor. Abdominal exam: Soft, nontender, nondistended, normal bowel sounds. No peritoneal signs. Back: Diffuse moderate tenderness to palpation over the lumbar spine and the paraspinous musculature in the lumbar region. No point tenderness. Negative straight leg bilaterally. 5/5 DF, PF, EHL bilaterally. Normal sensation to light touch throughout. Extremity: No clubbing, cyanosis, or edema. Emergency Department Course and Treatment: Patient was treated with Toradol IM. He is resting comfortably. Treatment Plan: Patient be discharged with naproxen. Instructed to follow-up Dr. Trivedi in 1 week if not improving. Return to the emergency department for any worsening symptoms. Disposition: To home in improved and stable condition. Impression: 1. Lumbar strain. This note was generated with [employer] dictation software. It may contain incorrect words, spelling, and punctuation that were not noted in review of the chart prior to signing ED Disposition - Plan for ED Patient: Instructions: ED LUMBAR SPRAIN/STRAIN Prescriptions: Naproxen [Naprosyn] 500 mg PO BID #14 tablet Referrals: Jerri Trivedi MD [STAFF PHYSICIAN] - 1 Week if not improving
[2019-10-24] MEDS: Ketorolac 60 MG/2 ML Vial IM (17:56)
[2019-10-24 18:00] VITALS: BP 160/85; PULSE 68; RESP 16; O2SAT 98
== END 2019-10-24 18:22 | disposition home or self-care (01) ==
LOC: ED 17:53
PROVIDERS: Emergency Provider Emergency Medicine; PCP Pediatrics
DX: S39.012A Strain of muscle, fascia and tendon of lower back, initial encounter (principal); X50.0XXA Overexertion from strenuous movement or load, initial encounter; Y93.9 Activity, unspecified; Y92.9 Unspecified place or not applicable; Z87.442 Personal history of urinary calculi
CPT/HCPCS: 96372; 99282

== ENCOUNTER 2020-10-02 19:31 | Emergency (ER) | payer OTHER, SELFPAY ==
[2020-10-02 19:32] VITALS: BP 163/81; PULSE 72; RESP 18; TEMP 36.4; O2SAT 98; BMI 36.8
--- NOTE | 2020-10-02 19:40 | ED.RN ---
NO DRUG TEST REQUIRED
--- NOTE | 2020-10-02 19:57 | ED.VIS.GEN ---
History of Present Illness Chief Complaint: Laceration Informant: Patient Onset: Today Context: Sudden Onset Timing: Continuous Current Severity: Mild Maximum Severity: Mild Narrative: Patient is a 25-year-old male with no significant medical history with up-to-date tetanus and presents to the emergency department for right index finger injury. Patient was at work. He states that he incised the finger on a broken piece of glass. He states he had immediate pain and bleeding. He presented here for further evaluation. He is right-hand dominant. He is otherwise been in his normal state of health. Prior similar symptoms: No Recent Illness/Hospitalization: No Past Medical History - Allergies and Home Meds Allergies/Adverse Reactions: Allergies tramadol Adverse Reaction (Verified 10/02/20 19:35) Hives Primary Care Physician: Nilo Heredia MD [Primary Care Provider] - Prior records reviewed: Yes Past Medical History: None Surgical History: noncontributory Smoking Status: Former smoker Review of Systems General: Denies: Chills, Fever, Sweats Eyes: Denies: Visual changes - bilaterally, Diplopia ENT: Denies: Rhinorrhea, Sore throat Cardiovascular: Denies: Chest pain, Palpitations Respiratory: Denies: Dyspnea, Cough, Dyspnea on exertion Gastrointestinal: Denies: Abdominal pain, Nausea, Vomiting, Diarrhea, Melena, Hematochezia Genitourinary: Denies: Dysuria, Hematuria, Frequency Musculoskeletal: Denies: Back pain, Extremity Pain Skin: Denies: Rash, Wounds Neurological: Denies: Headache, Weakness, Numbness Physical Exam Vital Signs/Narrative: Vital Signs Temp Pulse Resp BP Pulse Ox 10/02/20 19:32 97.6 F L 72 18 163/81 H 98 Inital Vital Signs reviewed: Yes General: Well nourished, Well developed, No Acute Distress Head: Normocephalic, Atraumatic Eyes: Perrl, EOMI ENT: Moist mucous membranes, No rhinorrhea Neck: Supple, Nontender Cardiovascular: Regular rate, Regular rhythm, No murmurs Respiratory: No distress, CTA bilaterally, Chest nontender Abdomen: Soft, Nontender, Nondistended, Normal bowel sounds Back: Nontender, Normal Inspection Extremities: No edema, Tenderness - Patient has a 1 cm avulsion injury to the tip of the right index. There is no active bleeding. Cap refills less than 2 seconds. Skin: Normal color, No rash Neurological: Alert, Oriented x3, Cranial nerves II-XII grossly intact, Normal Strength, Normal Sensation Psychological: Normal affect, Normal Mood Diagnostic/Tx/Re-eval - Medical Decision Making The wound was cleansed. I did explored. He had a very small piece of glass that I was able to removed without issue. Lidocaine was injected locally. Hemostasis was achieved. As this was an avulsion, I did not feel that suture was going to be of benefit as the avulsed skin was very thin. I did cover this with glue. He tolerated this without issue. Patient will be discharged home. Impression 1. 1. 1 cm right index finger avulsion ED Disposition - Plan for ED Patient: Instructions: ED Laceration, Extremity: Skin Glue Referrals: [facility] [GROUP OF PHYSICIANS] -
== END 2020-10-02 20:18 | disposition home or self-care (01) ==
LOC: ED 20:05
PROVIDERS: Emergency Provider Emergency Medicine
DX: S61.200A Unspecified open wound of right index finger without damage to nail, initial encounter (principal); W25.XXXA Contact with sharp glass, initial encounter; Y93.9 Activity, unspecified; Y92.9 Unspecified place or not applicable; Z87.891 Personal history of nicotine dependence
CPT/HCPCS: 99283

== ENCOUNTER 2021-05-30 12:18 | Emergency (ER) | payer MEDICAID, SELFPAY ==
[2021-05-30 12:19] VITALS: BP 149/76; PULSE 83; RESP 16; TEMP 35.6; O2SAT 96; BMI 36.8
--- NOTE | 2021-05-30 12:33 | EDS_ITS ---
HPI History of Present Illness Chief Complaint: Upper Extremity Injury Detail of Chief Complaint: Injury to right hand Informant: patient Narrative Narrative: Patient presents to the emergency department complaint of an injury to his right hand that occurred yesterday. Patient states that he was coming down some steps outside and slipped and fell back to try to catch himself with his right hand. Patient complains of pain and swelling in the hand. Denies any other injuries. [facility] Home Medications NK 10/02/20 [History Last Taken Unknown] Allergy/AdvReac Type Severity Reaction Status Date / Time tramadol AdvReac Hives Verified 05/30/21 12:18 Family History (Updated 10/05/20 @ 14:11 by Danuta Sanchez) Other Diabetes Surgical History (Updated 05/30/21 @ 12:26 by Toña Sena) History of appendectomy History of tonsillectomy and adenoidectomy Social History (Updated 10/05/20 @ 14:34 by Vincent FIGUEROA, PA) Smoking Status: Never smoker alcohol intake: current alcohol intake frequency: holidays/special occasions only ROS ROS ED Constitutional Constitutional ED: Reports systems reviewed and no addt'l complaints, except as documented; Denies body ache(s), change in weight or chills Eyes Eyes: Denies acute decrease in peripheral vision, change in vision, double vision or loss of vision ENT ENT ED: Reports none; Denies ear pain, lip swelling, loss taste/smell, neck pain, otalgia or sore throat Cardiovascular Cardiovascular: Reports none; Denies abdominal pain, chest pain with activity, leg edema, lightheadedness, palpitations, rapid heart rate or syncope Respiratory/Chest Respiratory/Chest: Reports none; Denies change in mental status, dry cough, dyspnea, hemoptysis, shortness of breath at rest or shortness of breath with exertion Gastrointestinal Gastrointestinal: Reports none; Denies abdominal pain, change in stool character, diarrhea, hematemesis, hematochezia, melena, rectal bleeding or vomiting Genitourinary Genitourinary ED: Reports none; Denies abdominal discomfort, anuria, dysuria, genital pain or polyuria Musculoskeletal Musculoskeletal: Reports none and other Details: Right hand pain/injury ; Denies arthralgias, back pain, difficulty walking, extremity pain, muscle weakness or myalgias Integumentary Reports none; Denies abscess or rash Neurologic Neurologic: Reports none; Denies abnormal gait, confusion, focal weakness, frequent falls, headache(s), loss of vision, numbness, paresthesias, radicular pain, vertigo or weakness Psychiatric Psychiatric: Reports systems reviewed and no addt'l complaints, except as documented and none; Denies behavioral changes, confusion, difficulty concentrating, hallucinations, suicidal ideation, tactile hallucinations or visual hallucinations Endocrine Endocrinology: Denies none, cold intolerance, excessive sweating, fatigue or heat intolerance Hematologic/Lymphatic Hematologic/Lymphatic: Reports none; Denies anemia, easy bleeding or easy bruising Allergic/Immunologic Allergic/Immunologic ED: Denies as per HPI, none, lip swelling, mouth swelling, throat swelling, tongue swelling or hives EXAM Physical Exam Const Vital Signs: 05/30/21 12:19 Temperature 96.0 F L Temperature Source Temporal Pulse Rate 83 Respiratory Rate 16 Blood Pressure 149/76 H Blood Pressure Mean 100 Pulse Ox 96 Oxygen Delivery Method Room Air Positive well nourished and well developed General Appearance ED: well developed and NAD HEENT Reports TM's clear and moist mucous membranes normocephalic and atraumatic; Negative for trauma or tenderness Tympanic Membrane ED: Yes TM's clear Eyes PERRL and EOMs intact bilaterally General Eye ED: Negative for pale conjunctiva or scleral icterus Neck no lymphadenopathy, supple and no JVD General: Negative for tenderness Chest Wall inspection of chest normal and palpation of chest normal Chest: Negative for tenderness Resp normal respiratory effort and clear to auscultation bilaterally Effort and Inspection: Negative for respiratory distress or pain with movement Auscultation: Negative for rhonchi, wheezes or diminished lung sounds Cardio regular rate, regular rhythm, S1 normal heart sound, S2 normal heart sound and no murmurs Peripheral Pulses: pulses 2+ throughout GI normal to inspection, nondistended, normoactive bowel sounds, soft to palpation, non-tender, non-distended and no masses Back/Spine no CVA tenderness and no thoracic nor lumbar tenderness Extremity Extremity Narrative: Evaluation of the right hand reveal some soft tissue swelling over the thenar eminence and webspace between the index finger and thumb. He is got diffuse tenderness palpation over the thumb without obvious deformity. Patient has some diffuse tenderness over the dorsum of the hand. No significant tenderness at the wrist or deformity noted. Neurovascular intact distally. No broken skin noted. General Extremety ED: Negative for edema General Extremity: Negative for edema Neuro oriented x3, CN's II-XII intact bilaterally, no sensory deficits noted and gait normal Sensorium / Orientation: awake, alert, oriented to person, oriented to place and oriented to time Motor Exam: strength 5/5 throughout and strength abnormal Psych mental status grossly normal Skin no rashes or lesions noted and no wounds MDM MDM MDM Narrative Medical decision making narrative: Patient will be given an Jw wrap. He is advised to ice and elevate the extremity. He is to follow-up with nm care physician in 5 to 7 days. Radiography Diagnostic Testing: Three-view x-rays of the right hand obtained interpreted by myself as no acute fractures or dislocations. Official radiology report pending. Discharge Plan Triage Chief Complaint: Upper Extremity Injury ED Provider: Torsten Meza Dx/Rx/DC Orders Clinical Impression: Sprain and strain of right hand Instructions: ED Hand Sprain Prescriptions: No Action NK RF: 0 Primary Care Provider: Avery Knapp NP Referrals: Avery Knapp UTILITY MECHANIC SUPERVISOR, UTILITY MECHANIC SUPERVISOR-C [Primary Care Provider] - 5-7 Days Disposition Disposition: Home, Self Care
--- NOTE | 2021-05-30 12:40 | RAD_ITS ---
STUDY: X-RAY - RIGHT HAND REASON FOR EXAM: Male, 25 years old. Pain following a recent fall. TECHNIQUE: 3 view(s) of the hand. COMPARISON: Comparison is made with prior study dated 05/25/2017. FINDINGS: Normal radiocarpal articulation. Normal distal radioulnar joint. Normal visualized carpal bones. Normal carpal articulations Normal carpometacarpal articulation of the thumb. Normal second through fifth carpometacarpal joints. Normal metacarpi. Normal metacarpophalangeal joint of the thumb. Normal interphalangeal joint of the thumb. Normal proximal and distal phalanges of the thumb. Normal metacarpophalangeal joints of the second through fifth fingers. Normal proximal and distal interphalangeal joints of the second through fifth fingers. Normal phalanges of the second through fifth fingers. The soft tissue structures are unremarkable. RAD/Hand Min 3 Views IMPRESSION: Normal x-ray examination of the hand. Electronically Signed: Nomi Rahman MD at 13:05 EST , Service support ,
== END 2021-05-30 13:17 | disposition home or self-care (01) ==
PROVIDERS: Emergency Provider Emergency Medicine; PCP Nurse Practitioner Family
DX: S63.91XA Sprain of unspecified part of right wrist and hand, initial encounter (principal); S66.911A Strain of unspecified muscle, fascia and tendon at wrist and hand level, right hand, initial encounter; W10.9XXA Fall (on) (from) unspecified stairs and steps, initial encounter; Y93.9 Activity, unspecified; Y92.9 Unspecified place or not applicable
CPT/HCPCS: 73130; 99282

== ENCOUNTER 2021-08-20 21:02 | Emergency (ER) | payer MEDICAID, SELFPAY ==
[2021-08-20 21:03] VITALS: BP 115/77; PULSE 77; RESP 16; TEMP 36.4; O2SAT 100; BMI 36.0
--- NOTE | 2021-08-20 21:38 | ED.VIS.LOWEX ---
HPI History of Present Illness Chief Complaint: Lower Extremity Injury Informant: patient Narrative Narrative: Patient presents for evaluation increasing right knee pain for the past week. He states he been working out more with squats. No acute event for injury. Reports he has had bilateral meniscus injury in the past he had a right knee meniscectomy 5 years ago for which he thinks is [facility] have he cannot recall the physician. He states the left-sided not need to repaired. He states he does have catching and locking sensations. No paresthesias. Pain increase in the right knee. Yesterday however slipped with mild left knee pain. However able to ambulate on that side. Has not tried any medications. No history of stomach ulcers or kidney problems. Prior similar symptoms: Yes PFSH PFSH Home Medications naproxen 500 mg PO BID PRN #20 tab 08/20/21 [Rx Last Taken Unknown] Allergy/AdvReac Type Severity Reaction Status Date / Time tramadol AdvReac Hives Verified 08/20/21 21:05 Family History Other Diabetes Surgical History History of appendectomy History of tonsillectomy and adenoidectomy Social History Smoking Status: Never smoker alcohol intake: current alcohol intake frequency: holidays/special occasions only ROS ROS ED Constitutional Constitutional ED: Denies chills, fever(s) or sweats Eyes Eyes: Denies change in vision ENT ENT ED: Denies dysphagia or sore throat Cardiovascular Cardiovascular: Denies chest pain, leg edema, palpitations or racing heartbeat Respiratory/Chest Respiratory/Chest: Denies cough, dyspnea or dyspnea on exertion Gastrointestinal Gastrointestinal: Denies abdominal pain, diarrhea, nausea or vomiting Genitourinary Genitourinary ED: Denies dysuria, hematuria or urinary frequency Musculoskeletal Musculoskeletal: Reports other Details: Bilateral knee pain right greater than left ; Denies back pain, extremity pain or neck pain Integumentary Denies rash or wounds Neurologic Neurologic: Denies headache(s), paresthesias or weakness EXAM Physical Exam Const Vital Signs: 08/20/21 21:03 Temperature 97.6 F L Temperature Source Temporal Pulse Rate 77 Respiratory Rate 16 Blood Pressure 115/77 Blood Pressure Mean 89 Pulse Ox 100 Oxygen Delivery Method Room Air Positive well nourished and well developed General Appearance ED: well developed and NAD HEENT Reports moist mucous membranes normocephalic and atraumatic Eyes PERRL, EOMs intact bilaterally and conjunctivae normal General Eye ED: Yes normal appearance of both eyes Neck no lymphadenopathy and supple General: Negative for tenderness Chest Wall Chest: Negative for tenderness Resp normal respiratory effort and normal air movement Effort and Inspection: symmetric chest movement; Negative for respiratory distress Cardio regular rate, regular rhythm and no murmurs Peripheral Pulses: pulses 2+ throughout GI normal to inspection, nondistended, normoactive bowel sounds and non-tender Palpation: Negative for guarding or rebound tenderness present Back/Spine no CVA tenderness and no thoracic nor lumbar tenderness Extremity Extremity Narrative: Right lower extremity: No hip tenderness knee extensor intact no patellar tenderness negative varus and valgus negative Bob's. No swelling. Skin intact. Neuro vas intact. Left lower extremity: No hip tenderness, knee extensor tightening varus valgus negative Bob's. No swelling. Skin intact. Neuro vas intact. General Extremety ED: Yes edema; Negative for tenderness General Extremity: edema Neuro oriented x3 and no sensory deficits noted Sensorium / Orientation: awake and alert Skin no rashes or lesions noted and no wounds MDM MDM MDM Narrative Medical decision making narrative: Cannot re-elicit the patient's pain there is no swelling extensor mechanism intact. He does have a history of meniscus repair reporting catching locking sensations that has been going on. He is concerned for reinjury that may need intervention. He has not tried any medications. Discussed with him treatment would be conservative with medication at this time he started on NSAIDs. He requests crutches for his right knee. Work note for tomorrow was given. He is given follow-up with on-call orthopedist. All questions were answered. Discharge Plan Triage Chief Complaint: Lower Extremity Injury ED Provider: Baljinder Rincon Dx/Rx/DC Orders Clinical Impression: Internal derangement of right knee Instructions: ED Meniscal Injury Knee Poss Prescriptions: New naproxen 500 mg tablet 500 mg PO BID PRN Qty: 20 RF: 0 Primary Care Provider: Avery Knapp PROSTHETIC MAKEUP DESIGNER Referrals: Alejandro Caraballo DO [STAFF PHYSICIAN] - 1-2 Weeks Avery Knapp PROSTHETIC MAKEUP DESIGNER, PROSTHETIC MAKEUP DESIGNER-C [Primary Care Provider] - Disposition Disposition: Home, Self Care Discharge Date/Time: 08/20/21 21:58
[2021-08-20] MEDS: Naproxen 250 MG Tablet 500 MG PO (21:39)
== END 2021-08-20 21:58 | disposition home or self-care (01) ==
LOC: ED 21:42
PROVIDERS: Emergency Provider Emergency Medicine; PCP Nurse Practitioner Family; Visit Provider Emergency Medicine
DX: M23.91 Unspecified internal derangement of right knee (principal)
CPT/HCPCS: 99284

== ENCOUNTER 2021-12-13 21:28 | Emergency (ER) | payer BC, MEDICAID, SELFPAY ==
[2021-12-13 21:29] VITALS: BP 158/75; PULSE 94; RESP 16; TEMP 36.8; O2SAT 99; BMI 36.0
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
[2021-12-13] MEDS: Naproxen 500 MG Tablet PO (22:05)
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
[2021-12-13 23:04] VITALS: BP 132/74; PULSE 68; RESP 16
== END 2021-12-13 23:06 | disposition home or self-care (01) ==
PROVIDERS: Emergency Provider Student in an Organized Health Care Education/Training Program; PCP Nurse Practitioner Family; Visit Provider Student in an Organized Health Care Education/Training Program
DX: S40.012A Contusion of left shoulder, initial encounter (principal); V43.52XA Car driver injured in collision with other type car in traffic accident, initial encounter
CPT/HCPCS: 73000; 73030; 99283

== ENCOUNTER 2022-03-25 13:34 | Emergency (ER) | payer OTHER, MEDICAID, SELFPAY ==
[2022-03-25 13:35] VITALS: BP 144/79; PULSE 77; RESP 18; TEMP 37.2; O2SAT 99; BMI 36.0
[2022-03-25 14:24] LABS: Mucous, Urine 0 SEEN /hpf (<or=2+); Squamous Epithelial Cells - UA 0 SEEN /hpf (0-5)
[2022-03-25 14:26] LABS: Color, Urine Red (Yellow); Glucose, Dipstick Normal (Normal); Ketone-Dipstick 5 mg/dl (Negative); Leukocyte Esterase-Dipstick 25 /ul (Negative); Nitrite-Dipstick Positive (Negative); Occult Blood-Urine 250 /ul (Negative); Protein-Dipstick 100 mg/dl (Negative); Specific Gravity, Urine 1.015 (1.002-1.030); Urine Bilirubin Dipstick Negative (Negative); Urine Clarity Turbid (Clear); Urine Urobilinogen Normal (Normal); Urine pH 6.5 (5.0 - 8.0)
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
[2022-03-25 14:37] LABS: Red Blood Cells-Urine > 100 SEEN /hpf (0-5)
[2022-03-25 14:40] LABS: Bacteria 1+ /hpf (None Seen); White Blood Cells 0-5 SEEN /hpf (0-5)
--- NOTE | 2022-03-25 15:23 | EX.ED.DYSGE1 ---
HPI History of Present Illness Chief Complaint: Flank Pain Detail of Chief Complaint: Right flank pain Informant: patient Onset/Context/Timing Onset: Today Context: Gradual Onset Current Severity: Mild Maximum Severity: Moderate Narrative Narrative: Patient presents secondary to right flank pain. Patient reports history of kidney stones but is never seen urology required surgery. He developed right flank pain this morning. Has had mild nausea but no vomiting. He has noted blood in his urine. He was seen at urgent care and referred to the emergency room. [facility] Medical History Kidney stones Home Medications hydrocodone-acetaminophen 5-325mg 5mg-325mg 1 tab PO Q6H PRN pain 3 days #10 tabs 03/25/22 [Rx Last Taken Unknown] naproxen 500 mg tablet (Naprosyn) 500 mg PO BID PRN pain #20 tabs 03/25/22 [Rx Last Taken Unknown] ondansetron 4 mg disintegrating tablet 4 mg PO Q8H PRN nausea and vomiting #10 tabs 03/25/22 [Rx Last Taken Unknown] Allergy/AdvReac Type Severity Reaction Status Date / Time tramadol AdvReac Hives Verified 03/25/22 13:35 Family History Other Diabetes Surgical History History of appendectomy History of tonsillectomy and adenoidectomy Social History Smoking Status: Never smoker alcohol intake: current alcohol intake frequency: holidays/special occasions only [facility] ED Constitutional Constitutional ED: Denies chills or fever(s) Eyes Eyes: Denies change in vision or discharge from eye(s) ENT ENT ED: Denies discharge from eye(s), rhinorrhea or sore throat Cardiovascular Cardiovascular: Denies chest pain or palpitations Respiratory/Chest Respiratory/Chest: Denies cough or dyspnea Gastrointestinal Gastrointestinal: Reports abdominal pain and nausea; Denies diarrhea or vomiting Genitourinary Genitourinary ED: Reports hematuria; Denies difficulty urinating or dysuria Musculoskeletal Musculoskeletal: Reports back pain; Denies extremity pain Integumentary Denies Abrasions or rash Neurologic Neurologic: Denies headache(s) or weakness Psychiatric Psychiatric: Denies anxiety or depression Allergic/Immunologic Allergic/Immunologic ED: Denies lip swelling or urticaria EXAM Physical Exam Const Vital Signs: 03/25/22 13:35 03/25/22 15:15 Temperature 98.9 F Temperature Source Temporal Pulse Rate 77 Respiratory Rate 18 Respiratory Effort Normal Non-Labored Respiratory Pattern Normal Blood Pressure 144/79 H Blood Pressure Mean 100 Pulse Ox 99 Oxygen Delivery Method Room Air Positive well nourished and well developed General Appearance ED: well developed HEENT Reports normocephalic and head/scalp atraumatic Eyes PERRL and EOMs intact bilaterally Neck supple Chest Wall inspection of chest normal and palpation of chest normal Resp normal respiratory effort and clear to auscultation bilaterally Cardio regular rate and regular rhythm GI normal to inspection, nondistended, normoactive bowel sounds Palpation: soft Back/Spine General Back: CVA tenderness right Extremity normal to inspection Neuro oriented x3 and no sensory deficits noted Sensorium / Orientation: alert Motor Exam: strength 5/5 throughout Psych mental status grossly normal Skin no rashes or lesions noted MDM MDM MDM Narrative Medical decision making narrative: Patient had urinalysis and CT flank obtained prior to my initial evaluation due to long wait in the emergency room. Urinalysis does reveal blood with positive nitrites, however only 1+ bacteria and 0-5 white cells are noted. CT scan reveals a 5.3 mm right UPJ stone with mild hydronephrosis. Patient's pain is well controlled at this time. He will be given Naprosyn and Zofran here as he did drive himself to the emergency room. Prescriptions for Naprosyn, Zofran, [place] will be provided for him. He is referred to urology and I will speak with Dr. Ortiz to notify him of the patient's need for follow-up. I did encourage the patient to return to the emergency room for worsened pain, vomiting, unable to tolerate meds, etc. Patient voices understanding and agreement. Lab Data Labs: Laboratory Results - last 24 hr 03/25/22 14:17 Urine Color Red Urine Clarity Turbid Urine pH 6.5 Ur Specific [place] 1.015 Urine Protein 100 H Urine Glucose (UA) Normal Urine Ketones 5 H Urine Occult Blood 250 H Urine Nitrite Positive H Urine Bilirubin Negative Urine Urobilinogen Normal Ur Leukocyte Esterase 25 H Urine RBC > 100 SEEN Urine WBC 0-5 SEEN Ur Squamous Epith Cells 0 SEEN Urine Bacteria 1+ Urine Mucus 0 SEEN Radiography Diagnostic Testing: Clinical Impression(s) from Imaging Studies Abdomen/Pelvis CT 03/25/22 14:31 IMPRESSION: There is a 5.3 mm calculus at the right ureteropelvic junction causing mild degree of the right hydronephrosis. Electronically Signed: Nomi Rahman MD at 15:00 EDT , Discharge Plan Triage Chief Complaint: Flank Pain ED Provider: Emili Bower Dx/Rx/DC Orders Clinical Impression: Ureterolithiasis Instructions: ED Kidney Stone w/ Colic Prescriptions: New naproxen [Naprosyn] 500 mg tablet 500 mg PO BID PRN (Reason: pain) Qty: 20 0RF ondansetron 4 mg tablet,disintegrating 4 mg PO Q8H PRN (Reason: nausea and vomiting) Qty: 10 0RF hydrocodone-acetaminophen 5-325 mg tablet 1 tab PO Q6H PRN (Reason: pain) 3 Days Qty: 10 0RF Stand Alone Forms: ED Work / School Excuse Primary Care Provider: Avery Knapp DIRECTOR OF ENROLLMENT Referrals: Servando Ortiz MD [Med Staff - Active Staff] - 5-7 Days Avery Knapp NP, DIRECTOR OF ENROLLMENT-C [Primary Care Provider] - Disposition Disposition: Home, Self Care
[2022-03-25] MEDS: Ondansetron ODT 4 MG Tablet PO (15:54)
[2022-03-25] MEDS: Naproxen 500 MG Tablet PO (15:54)
[2022-03-25 15:55] VITALS: BP 130/62; PULSE 69; RESP 18; O2SAT 100
== END 2022-03-25 15:57 | disposition home or self-care (01) ==
PROVIDERS: Emergency Provider Emergency Medicine; PCP Nurse Practitioner Family; Visit Provider Emergency Medicine
DX: N13.2 Hydronephrosis with renal and ureteral calculous obstruction (principal); R10.9 Unspecified abdominal pain; R11.0 Nausea; R31.9 Hematuria, unspecified; Z87.442 Personal history of urinary calculi
CPT/HCPCS: 74176; 81001; 99285; A4216

== ENCOUNTER → 2023-04-08 | Outpatient (CLI) | payer MEDICAID, SELFPAY ==
[2023-04-08 12:38] LABS: Erythrocyte Sedimentation Rate 12 mm/hr (0-20)
[2023-04-08 12:42] LABS: Absolute Lymphocyte Count 2.37 X10^3/uL (0.83-4.51); Absolute Neutrophil Count 3.1 X10^3/uL (2.0-7.7); Basophil# 0.07 X10^3/uL; Basophil% 1.2 % (0-1); Eosinophil# 0.09 X10^3/uL; Eosinophils% 1.5 % (0-5); Hematocrit 44.1 % (40-54); Hemoglobin 15.2 g/dL (13.0-16.5); Lymphocyte # 2.37 X10^3/ul (0.83-4.51); Lymphocyte % 39.2 % (19-41); Mean Corp Hgb Conc 34.5 g/dL (32-36); Mean Corpuscular Hgb 29.2 pg (27.0-32.0); Mean Corpuscular Volume 84.8 fL (80-94); Mean Platelet Vol. 10.4 fl (6.2-12.0); Monocyte# 0.45 X10^3/uL; Monocyte% 7.4 % (0-10); NRBC Flagged by Analyzer 0 % (0-5); Neutrophil # 3.05 X10^3/uL (2.7-7.7); Neutrophil % 50.4 % (47-70); Platelet Count 383 K/mm3 (150-450); RBC Distribution Width CV 12.3 % (11.6-14.6); RBC Distribution Width SD 37.2 fl (35.1-43.9); White Blood Count 6.1 K/mm3 (4.4-11.0)
[2023-04-08 13:49] LABS: ALB/GLOB Ratio 0.9 RATIO (0.9-2.4); AST(SGOT) 20 U/L (15-37); Alanine Aminotransfer ALT/SGPT 56 U/L (16-61); Alkaline Phosphatase 66 U/L (45-117); Anion Gap 6 (5-15); BUN 13 mg/dL (7-18); BUN/Creat Ratio 13.1 RATIO (10-20); Calcium,Total 9.1 mg/dL (8.5-10.1); Chloride 106 mmol/L (98-107); Cholesterol 197 mg/dL (200); Creatinine, Serum 0.99 mg/dL (0.70-1.30); EST Glomerular Filtration Rate 97 mL/min (>60); Est Glom Filt Rate - Afr Amer 117 mL/min (>60); Globulin 4.4 g/dL (2.2-4.2); Glucose 91 mg/dL (74-106); High Density Lipoprotein 34 mg/dL; Potassium 3.6 mmol/L (3.5-5.1); Protein, Total 8.4 g/dL (6.4-8.2); Sodium Level 137 mmol/L (136-145); Thyroid Stim Hormone (TSH) 1.63 uIU/mL (0.358-3.74); Triglycerides 255 mg/dL; Troponin-I HS 4 pg/mL (3.0-78.0); Very Low Density Lipoprotein 51 mg/dL (5-40)
== END | disposition home or self-care (01) ==
LOC: MFPLAB 11:11
PROVIDERS: PCP Family Medicine; Visit Provider Family Medicine
DX: R07.9 Chest pain, unspecified (principal)
CPT/HCPCS: 36415; 80053; 80061; 84443; 84484; 85025; 85652

== ENCOUNTER → 2023-05-06 | Outpatient (CLI) | payer MEDICAID, SELFPAY ==
[2023-05-13 12:09] LABS: Dopamine, Pl 55 pg/mL (0-48); Epinephrine, Pl 18 pg/mL (0-62); Norepinephrine, Pl 445 pg/mL (0-874); Thyroid Peroxidase AB < 9 IU/mL (0-34); Thyroid Stim Immunoglob <0.10 IU/L (0.00-0.55)
== END | disposition home or self-care (01) ==
LOC: MTLAB 09:23
PROVIDERS: PCP Family Medicine; Referring Provider Family Medicine; Visit Provider Family Medicine
DX: R00.2 Palpitations (principal)
CPT/HCPCS: 36415; 82384; 84445; 86376

== ENCOUNTER → 2023-05-12 | Outpatient (CLI) | payer MEDICAID, SELFPAY ==
[2023-05-22 20:08] LABS: Cortisol, Free 24Ur 31 ug/24 hr (5-64); Cortisol, Urinary Free 18 ug/L (Undefined)
== END | disposition home or self-care (01) ==
LOC: LABSPEC 08:49
PROVIDERS: PCP Family Medicine; Referring Provider Family Medicine; Visit Provider Family Medicine
DX: R00.2 Palpitations (principal)
CPT/HCPCS: 81050; 82530

== ENCOUNTER 2023-06-19 13:27 | Emergency (ER) | payer MEDICAID, SELFPAY ==
[2023-06-19 13:28] VITALS: BP 153/78; PULSE 71; RESP 18; TEMP 36.8; O2SAT 98; BMI 38.2
[2023-06-19 14:02] LABS: Mucous, Urine 0 SEEN /hpf (<or=2+); Squamous Epithelial Cells - UA 0 SEEN /hpf (0-5)
[2023-06-19 14:13] LABS: Color, Urine Yellow (Yellow); Glucose, Dipstick Normal (Normal); Ketone-Dipstick 5 mg/dl (Negative); Leukocyte Esterase-Dipstick 25 /ul (Negative); Nitrite-Dipstick Positive (Negative); Occult Blood-Urine 250 /ul (Negative); Protein-Dipstick 100 mg/dl (Negative); Specific Gravity, Urine 1.025 (1.002-1.030); Urine Bilirubin Dipstick Negative (Negative); Urine Clarity Turbid (Clear); Urine Urobilinogen 1 mg/dl (Normal)
[2023-06-19 14:33] LABS: Red Blood Cells-Urine 25-50 SEEN /hpf (0-5); White Blood Cells 0-5 SEEN /hpf (0-5)
[2023-06-19 14:34] LABS: Bacteria 1+ /hpf (None Seen)
[2023-06-19 15:27] LABS: Absolute Lymphocyte Count 2.32 X10^3/uL (0.83-4.51); Absolute Neutrophil Count 5.5 X10^3/uL (2.0-7.7); Basophil% 1.2 % (0-1); Eosinophil# 0.11 X10^3/uL; Eosinophils% 1.3 % (0-5); Hematocrit 44.8 % (40-54); Hemoglobin 15.9 g/dL (13.0-16.5); Lymphocyte # 2.32 X10^3/ul (0.83-4.51); Mean Corp Hgb Conc 35.5 g/dL (32-36); Mean Corpuscular Hgb 29.6 pg (27.0-32.0); Mean Corpuscular Volume 83.3 fL (80-94); Mean Platelet Vol. 10.1 fl (6.2-12.0); Monocyte# 0.52 X10^3/uL; NRBC Flagged by Analyzer 0 % (0-5); Neutrophil # 5.52 X10^3/uL (2.7-7.7); Neutrophil % 64.2 % (47-70); Platelet Count 386 K/mm3 (150-450); RBC Distribution Width CV 12.3 % (11.6-14.6); RBC Distribution Width SD 37.3 fl (35.1-43.9); Red Blood Count 5.38 M/mm3 (4.6-6.2); White Blood Count 8.6 K/mm3 (4.4-11.0)
--- NOTE | 2023-06-19 15:28 | EDS_ITS ---
HPI History of Present Illness Chief Complaint: Flank Pain Narrative Narrative: 8-year-old male with history of kidney stones presenting with right flank pain for 4 days. Patient states he had flank pain 2 weeks ago and feels it resolved. He saw his PCP at that time who told him he had a kidney stone. Patient states that all of his kidney stones are passed spontaneously. He used to have a urologist in [facility] however his current does not excepted anymore. Patient said he is never had to have procedures to remove kidney stones. Patient states they will pass spontaneously. Patient denies any fever, chills. Has mild nausea. States he has hematuria and dysuria as well as urinary frequency. Other than kidney stones states he only has a past medical history of asthma. [facility] Medical History (Updated 06/19/23 @ 17:[address] Wally Harry, DO) Kidney stones Home Medications hydrocodone-acetaminophen 5-325mg 5mg-325mg 1 tab PO Q6H PRN pain 3 days #10 tabs 03/25/22 [Rx Last Taken Unknown] naproxen 500 mg tablet (Naprosyn) 500 mg PO BID PRN pain #20 tabs 03/25/22 [Rx Last Taken Unknown] ondansetron 4 mg disintegrating tablet 4 mg PO Q8H PRN nausea and vomiting #10 tabs 03/25/22 [Rx Last Taken Unknown] hydrocodone-acetaminophen 5-325mg 5mg-325mg 1 tab PO Q6H PRN PRN Pain 3 days #12 TABLETS 06/19/23 [Rx Last Taken Unknown] ondansetron 4 mg disintegrating tablet 4 mg PO Q8H PRN PRN Nausea #12 tabs 06/19/23 [Rx Last Taken Unknown] sulfamethoxazole 800 mg-trimethoprim 160 mg tablet (Bactrim DS) 1 tab PO BID 10 days #20 tabs 06/19/23 [Rx Last Taken Unknown] Allergy/AdvReac Type Severity Reaction Status Date / Time tramadol AdvReac Hives Verified 06/19/23 13:28 Family History Other Diabetes Surgical History History of appendectomy History of tonsillectomy and adenoidectomy Social History Smoking Status: Never smoker alcohol intake: current alcohol intake frequency: holidays/special occasions only ROS ROS ED Constitutional Constitutional ED: Denies chills, fever(s) or sweats Eyes Eyes: Denies blurry vision or change in vision ENT ENT ED: Denies ear pain or sore throat Cardiovascular Cardiovascular: Denies chest pain, palpitations or racing heartbeat Respiratory/Chest Respiratory/Chest: Denies cough, dyspnea or sputum Gastrointestinal Gastrointestinal: Reports nausea; Denies abdominal pain, constipation, diarrhea or vomiting Genitourinary Genitourinary ED: Denies dysuria, hematuria or urinary frequency Musculoskeletal Musculoskeletal: Reports back pain; Denies arthralgias, myalgias or neck pain Integumentary Denies abscess, Abrasions or rash Neurologic Neurologic: Denies headache(s), paresthesias or weakness Psychiatric Psychiatric: Denies anxiety, depression, suicidal ideation or suicidal thoughts Endocrine Endocrinology: Denies polydipsia or polyuria EXAM Physical Exam Const Vital Signs: 06/19/23 13:28 Temperature 98.3 F Temperature Source Temporal Pulse Rate 71 Respiratory Rate 18 Blood Pressure 153/78 H Blood Pressure Mean 103 Pulse Ox 98 Oxygen Delivery Method Room Air Positive well nourished General Appearance ED: NAD; Negative for pallor HEENT Reports moist mucous membranes normocephalic and atraumatic Eyes PERRL Resp normal respiratory effort Cardio regular rate and regular rhythm GI non-tender Bladder / Kidney Exam: CVA tenderness right Neuro oriented x3 and CN's II-XII intact bilaterally Sensorium / Orientation: alert and oriented to person Psych mental status grossly normal Skin General Skin Exam: Negative for jaundice or pallor MDM MDM MDM Narrative Medical decision making narrative: 28-year-old male presenting with right flank pain. Onset was about 4 days ago. Patient has history of kidney stones which have all passed continuously. Show includes kidney stone, pyelonephritis, UTI, dehydration, anemia, electrolyte abnormalities. Patient medicated with Toradol and Zofran as patient is driving. CBC was obtained to assess white blood cell count, hemoglobin, platelets. BMP to assess renal function, electrolytes. Urinalysis to assess for UTI. CBC shows no significant leukocytosis. Hemoglobin stable 15.9. Urinalysis shows positive nitrites with 25-50 RBCs and 0-5 WBCs and no squamous epithelial cells and 1+ bacteria. Patient was given a dose of Rocephin 1 g IV. Urine culture was sent. Patient given IV fluids.CBC shows normal white blood cell count of 8.6. Hemoglobin stable 15.9. Renal function electrolytes within normal limits. Urinalysis positive for nitrites, 5?50 RBCs, 0-5 WBC with 1+ bacteria. Patient will be covered with Bactrim. CT of the abdomen pelvis without contrast shows a 1 cm UPJ stone with minimal obstruction. Patient counseled on findings. Patient was given follow-up with Dr. Ortiz however he was cautioned on return precautions over the weekend. Impression: 1. Kidney stone 2. Hematuria 3. Pyelonephritis Lab Data Attestation: I reviewed the patient's lab results. Labs: Laboratory Results - last 24 hr 06/19/23 06/19/23 13:30 13:55 WBC 8.6 RBC 5.38 Hgb 15.9 Hct 44.8 MCV 83.3 MCH 29.6 MCHC 35.5 RDW Std Deviation 37.3 RDW Coeff of Ted 12.3 Plt Count 386 MPV 10.1 Immature Gran % (Auto) 0.300 Neut % (Auto) 64.2 Lymph % (Auto) 27.0 [place] % (Auto) 6.0 Eos % (Auto) 1.3 Baso % (Auto) 1.2 H Absolute Neuts (auto) 5.5 Absolute Lymphs (auto) 2.32 Nucleated RBC % 0 Sodium 141 Potassium 3.7 Chloride 106 Carbon Dioxide 29.0 Anion Gap 6 BUN 12 Creatinine 1.21 Estim Creat Clear Calc 85.74 Est GFR (MDRD) Af Amer 93 Est GFR (MDRD) Non-Af 77 BUN/Creatinine Ratio 9.9 L Glucose 89 Calcium 9.6 Urine Color Yellow Urine Clarity Turbid Urine pH 5.0 Ur Specific [place] 1.025 Urine Protein 100 H Urine Glucose (UA) Normal Urine Ketones 5 H Urine Occult Blood 250 H Urine Nitrite Positive H Urine Bilirubin Negative Urine Urobilinogen 1 H Ur Leukocyte Esterase 25 H Urine RBC 25-50 SEEN Urine WBC 0-5 SEEN Ur Squamous Epith Cells 0 SEEN Urine Bacteria 1+ Urine Mucus 0 SEEN Radiography Diagnostic Testing: Clinical Impression(s) from Imaging Studies Abdomen/Pelvis CT 06/19/23 15:52 IMPRESSION: 1 cm right UPJ stone with minimal secondary obstructive changes. No other definite acute or significant abnormality seen. Electronically Signed: Chencho Nagel MD at 16:21 EST , Discharge Plan Triage Chief Complaint: Flank Pain ED Provider: Wally Harry Dx/Rx/DC Orders Instructions: ED Kidney Stone with Pain Prescriptions: New ondansetron 4 mg tablet,disintegrating 4 mg PO Q8H PRN PRN (Reason: Nausea) Qty: 12 0RF hydrocodone-acetaminophen 5-325 mg tablet 1 tab PO Q6H PRN PRN (Reason: Pain) 3 Days Qty: 12 0RF sulfamethoxazole-trimethoprim [Bactrim DS] 800-160 mg tablet 1 tab PO BID 10 Days Qty: 20 0RF No Action naproxen [Naprosyn] 500 mg tablet 500 mg PO BID PRN (Reason: pain) Qty: 20 0RF ondansetron 4 mg tablet,disintegrating 4 mg PO Q8H PRN (Reason: nausea and vomiting) Qty: 10 0RF hydrocodone-acetaminophen 5-325 mg tablet 1 tab PO Q6H PRN (Reason: pain) 3 Days Qty: 10 0RF Primary Care Provider: Kar Troncoso Referrals: aKr Troncoso MD [Primary Care Provider] - Servando Ortiz MD [Med Staff - Active Staff] - 3-5 Days Disposition Disposition: Home, Self Care
[2023-06-19 15:40] LABS: Anion Gap 6 (5-15); BUN 12 mg/dL (7-18); BUN/Creat Ratio 9.9 RATIO (10-20); Calcium,Total 9.6 mg/dL (8.5-10.1); Chloride 106 mmol/L (98-107); Creatinine, Serum 1.21 mg/dL (0.70-1.30); EST Glomerular Filtration Rate 77 mL/min (>60); Est Glom Filt Rate - Afr Amer 93 mL/min (>60); Estimated Creatinine Clearance 85.74 ml/min; Glucose 89 mg/dL (74-106); Potassium 3.7 mmol/L (3.5-5.1); Sodium Level 141 mmol/L (136-145)
[2023-06-19] MEDS: Ceftriaxone 1 GM/50 ML BAG IV (15:41)
[2023-06-19] MEDS: Ketorolac 15 MG/ML Vial IV (15:42)
[2023-06-19] MEDS: Ondansetron 4 MG/2 ML Vial IV (15:44)
--- NOTE | 2023-06-19 15:52 | CT_ITS ---
STUDY: CT ABDOMEN AND PELVIS WITHOUT CONTRAST REASON FOR EXAM: Male, 28 years old. right flank pain RADIATION DOSAGE (If Supplied By Facility): CTDIvol = ( 17.51 ) mGy, DLP = ( 958.01 ) mGycm TECHNIQUE: Transaxial images were obtained from the dome of the diaphragm to the symphysis pubis without oral contrast, and without intravenous contrast. Sagittal and coronal images were reconstructed. Individualized dose optimization techniques were used for this CT. COMPARISON: 03/25/2022. FINDINGS: The visualized lung bases show a 4 mm noncalcified nodule in the lateral right middle lobe, image 8 which in this age group is most consistent with granuloma. The visualized portions of the heart are within normal limits. There is decreased attenuation of the liver consistent with steatosis. Normal gallbladder and extrahepatic biliary system. Normal spleen. Normal pancreas. Normal bilateral adrenal glands. Right kidney shows mild distention of the renal pelvis related to a 1 cm right UPJ stone, seen on coronal image 73 and axial image 73. Normal left kidney. Normal visualized stomach. Normal small intestine. Normal colon. There are surgical clips in the region of the appendix consistent with a prior appendectomy. Normal abdominal aorta. Normal inferior vena cava. Normal retroperitoneum. Normal urinary bladder. Normal abdominal wall. Normal osseous structures. CT/Abdomen/Pelvis without Cont IMPRESSION: 1 cm right UPJ stone with minimal secondary obstructive changes. No other definite acute or significant abnormality seen. Electronically Signed: Chencho Nagel MD at 16:21 EST ,
[2023-06-19] MEDS: Smz/Tmp Ds Tablet 1 TABLET PO (17:30)
--- OUTSIDE RECORDS SUMMARY | 2023-06-19 18:03 | XMS RPT_ITS | CCD ---
Author Name Unknown Address [address] [facility] [address] [place] [address] Organization [facility] Care Team Providers Care Financial Services Rep Name Role Phone Unavailable Primary Care Provider UnavailTAYLOR Partida Attending Unavailable ALFREDO HUNTER Primary Care Unavailable Allergies Allergy Classification Reported Allergen(s) Allergy Type Date of Onset Reaction(s) Facility (4 sources) traMADol; Translations: [TRAMADOL] Drug Allergy 11-23-[address] [facility] Medications Completed/Discontinued Medications Medication Drug Class(es) Dates Sig (Normalized) Sig (Original) acetaminophen 325 mg / oxyCODONE hydrochloride 5 mg oral tablet (3 sources) Opioid Agonist Start: 05-26-2015 oxyCODONE-acetamino phen (PERCOCET) 5-325 mg tablet pediatric multivitamin without iron chewable (POLY-VITAMINS) chewable tablet (3 sources) Start: 11-16-2014 take 1 tablet by mouth once daily pediatric multivitamin without iron chewable (POLY-VITAMINS) chewable tablet Take 1 tablet by mouth once daily. 30 tablet 11 11/16/2014 Active Problems Active Problems Problem Classification Problem Date Documented Da te Episodic/Chronic Genitourinary symptoms and ill-defined conditions (1 source) Blood in urine; Translations: [Hematuria, unspecified] Episodic Past or Other Problems Problem Classification Problem Date Documented Da te Episodic/Chronic Appendicitis and other appendiceal conditions (3 sources) Acute appendicitis with localized peritonitis; Translations: [Acute appendicitis with localized peritonitis, without perforation or gangrene] Onset: 06-01-2015 06-01-2015 Episodic Results Test Name Value Interpretation Reference Range Facil ity Vital Signs Date Time Vital Sign Value Performing Clinician Faci litbia 04-09-2022 14:20-0400 Body height 165.1 cm Taylor Lopez PA-C Work Phone: [facility] 04-09-2022 14:20-0400 Body temperature 98.71 [degF] Taylor Lopez PA-C Work Phone: [facility] 04-09-2022 14:20-0400 Body weight 102.97 kg Taylor Lopez PA-C Work Phone: [facility] 04-09-2022 14:20-0400 Diastolic blood pressure 74 mm[Hg] Taylor Lopez PA-C Work Phone: [facility] 04-09-2022 14:20-0400 Heart rate 104 /min Taylor Lopez PA-C Work Phone: [facility] 04-09-2022 14:20-0400 Respiratory rate 14 /min Taylor Lopez PA-C Work Phone: [facility] 04-09-2022 14:20-0400 SaO2% (BldA) [Mass fraction] 97 % Taylor Lopez PA-C Work Phone: [facility] 04-09-2022 14:20-0400 Systolic blood pressure 130 mm[Hg] Taylor Lopez PA-C Work Phone: [facility] Encounters Encounter Date Encounter Type Care Provider Facility Start: 05-15-2022 Telephone encounter Taylor Mo cornell PA-C Work Phone: Urology Procedures Date Procedure Procedure Detail Performing Clinician Start: 04-09-2022 Urnls dip stick/tabl et rgnt auto w/o microscopy Taylor Lopez PA-C Work Phone: Plan of Treatment Date Care Activity Detail Author Start: 02-14-2022 Influenza vaccination INFLUENZA (#1) [facility] Start: 06-16-2021 DEPRESSION ASSESSMENT DEPRESSION ASSESSMENT [facility] Start: 01-17-2018 Urine microalbumin profile DTAP,TDAP,TD (5 - Td or Tdap) [facility] Start: 2014 HEPATITIS C SCREENING HEPATITIS C SCREENING [facility] Start: 2014 HIV SCREENING HIV SCREENING [facility] Start: 05-19-2012 HPV VACCINE (2 - Male 3-dose series) HPV VACCINE (2 - Male 3-dose series) [facility] Start: 2010 PEDS TO ADULT TRANSITION ANNUAL ASSESSMENT PEDS TO ADULT TRANSITION ANNUAL ASSESSMENT [facility] Start: 2008 PEDS TO ADULT TRANSITION INITIAL DISCUSSION PEDS TO ADULT TRANSITION INITIAL DISCUSSION [facility] Start: 1996 COVID-19 VACCINE (#1) COVID-19 VACCINE (#1) [facility] POST VOID RESIDUAL POST VOID RES IDUAL Procedures Routine Hematuria, unspecified type Ordered: 04/09/2022 [facility] Work Phone: Immunizations Immunization Date Immunization Notes Care Provider Fa cility 04-21-2012 human papilloma viru s vaccine, quadrivalent Taylor Lopez PA-C Work Phone: [facility] 04-21-2012 influenza virus vaccine, unspecified formulation Taylor Lopez PA-C Work Phone: [facility] 03-18-2009 influenza virus vaccine, unspecified formulation Taylor Lopez PA-C Work Phone: [facility] Work Phone: 05-02-2008 influenza virus vaccine, live, attenuated, for intranasal use Taylor Lopez PA-C Work Phone: [facility] Work Phone: 01-18-2008 Meningococcal, MCV4, unspecified conjugate formulation(groups A, C, Y and W-135) Taylor Lopez PA-C Work Phone: [facility] 01-18-2008 tetanus toxoid, redu malika diphtheria toxoid, and acellular pertussis vaccine, adsorbed Taylor Lopez PA-C Work Phone: [facility] 01-18-2008 varicella virus vaccine Bran don Lopez PA-C Work Phone: [facility] 02-24-2002 diphtheria, tetanus toxoids and acellular pertussis vaccine Taylor Lopez PA-C Work Phone: [facility] Work Phone: 02-24-2002 measles, mumps and rubella virus vaccine Taylor Lopez PA-C Work Phone: [facility] Work Phone: 02-24-2002 poliovirus vaccine, inactivated Taylor Lopez PA-C Work Phone: [facility] Work Phone: 10-04-1997 diphtheria, tetanus toxoids and acellular pertussis vaccine Taylor Lopez PA-C Work Phone: [facility] Work Phone: 10-04-1997 haemophilus influenz ae type b vaccine, HbOC conjugate Taylor Lopez PA-C Work Phone: [facility] Work Phone: 10-04-1997 poliovirus vaccine, inactivated Taylor Lopez PA-C Work Phone: [facility] Work Phone: 07-28-1997 measles, mumps and rubella virus vaccine Taylor Lopez PA-C Work Phone: [facility] Work Phone: 07-28-1997 varicella virus vaccine Bran don Lopez PA-C Work Phone: [facility] Work Phone: 01-04-1997 diphtheria, tetanus toxoids and acellular pertussis vaccine Taylor Lopez PA-C Work Phone: [facility] Work Phone: 01-04-1997 haemophilus influenz ae type b vaccine, HbOC conjugate Taylor Lopez PA-C Work Phone: [facility] Work Phone: 01-04-1997 hepatitis B vaccine, pediatric or pediatric/adolescent dosage Taylor Lopez PA-C Work Phone: [facility] Work Phone: 1996 diphtheria, tetanus toxoids and acellular pertussis vaccine Taylor Lopez PA-C Work Phone: [facility] Work Phone: 1996 haemophilus influenz ae type b vaccine, HbOC conjugate Taylor Lopez PA-C Work Phone: [facility] Work Phone: 1996 poliovirus vaccine, inactivated Taylor Lopez PA-C Work Phone: [facility] Work Phone: 1996 Tetramune Taylor Lopez PA-C Work Phone: [facility] Work Phone: 1996 diphtheria, tetanus toxoids and acellular pertussis vaccine Taylor Lopez PA-C Work Phone: [facility] Work Phone: 1996 haemophilus influenz ae type b vaccine, HbOC conjugate Taylor Lopez PA-C Work Phone: [facility] Work Phone: 1996 hepatitis B vaccine, pediatric or pediatric/adolescent dosage Taylor Lopez PA-C Work Phone: [facility] Work Phone: 1996 poliovirus vaccine, inactivated Taylor Lopez PA-C Work Phone: [facility] Work Phone: 1996 Tetramune Taylor Lopez PA-C Work Phone: [facility] Work Phone: 1996 hepatitis B vaccine, pediatric or pediatric/adolescent dosage Taylor Lopez PA-C Work Phone: [facility] Work Phone: Payers Date Payer Category Payer Private Health Insurance [facility] [employer] [id number] 2022-Present [phone] [address] [place] [address] HMO [id number] 2015 Medicaid [id number] 2015 Medicaid [id number] Social History Date Type Detail Facility Start: 11-28-2010 Tobacco smoking stat us NHIS Never smoked tobacco [facility] Work Phone: Start: 11-28-2010 Tobacco use and exposure Smokeless tobacco non-user [facility] Work Phone: Start: 04-09-2022 Alcohol intake Ex-drinker (finding) [facility] Start: 05-13-2007 Tobacco Comment mom and dad jose de jesus freedman outside only [facility] Start: 1996 Sex Assigned At Not on file C [facility] Start: 03-30-2022 End: 04-09-2022 Exposure to SARS-CoV-2 (event) Not sure [facility] Note 05-15-2022 Telephone Encounter - Laurie Bello - 05/15/2022 12:04 PM ESTTelephone Encounter - Taylor Lopez PA-C - 05/15/2022 11:41 AM ESTTelephone Encounter - Jerri Bonilla Ma - 05/15/2022 11:35 AM EST Note Date & Type Note Facility 05-15-2022 Miscellaneous Notes Formattin g of this note might be different from the original. Called patient and gave recommendations from provider. Pt in agreement with plan. He will update us after being seen at ER. Laurie Bello I recommend going to [facility] ER, sounds like could be a stone moving, needs medication in IV fluids and imaging no of which I can do in office. If he goes to [facility] they will not do much but try and get imaging and the tell him to Dr. Gilbert which will take a week if he takes his insurance then he will be referred back to me and I tell him this from above. LAYO Ely, GM [place] Patient called in stating for the last 2 days he has noticed blood in his urine, burning with urination and low right side back pain that radiates to his groin. Rates pain 01/23. Patient states he gets frequent kidney stones. Patient asking for advice. Please contact him back at [phone]. documented in this encounter [facility] Progress note 04-09-2022 Note Date & Type Note Facility 04-09-2022 Note HNO ID: [id number] Author: Taylor Lopez PA-C Service: ? Author Type: Physician Keno Writer/Runner Type: Progress Notes Filed: 04/09/2022 3:53 PM Note Text: [facility] NEW PATIENT CLINIC NOTE SERVICE DATE: 04/09/2022 SERVICE TIME: 3:48 PM NAME: Robert Foster municated back to the requesting physician by way of shared medical record or letter via US mail. CHIEF COMPLAINT: Kidney Stone with hematuria HISTORY OF PRESENT ILLNESS: Robert Foster is a 26 year old Male with PMH including Nephrolithiasis and hematuria presenting with follow up after stone at ER The patient reports he is doing well now and we discussed the small stone can pas at 5.3 mm and gave him Flomax to assist in this FLUIDS: Increase LUTS: DYSURIA: yes URGENCY: Yes FREQUENCY:6 per day NOCTURIA: 2 per night STRAINING TO VOID: Yes EMPTIES COMPLETELY: Yes UTI: No GROSS HEMATURIA: no MICROSCOPIC HEMATURIA: no UA DIPSTICK POSITIVE ONLY: yes Other symptoms: LABS: No results found for: TESTOST No results found for: TESTFREE No results found for: PSA No results found for: HCT MEDICATIONS: tamsulosin (FLOMAX) 0.4 mg Take 1 capsule by mouth daily at bedtime. predniSONE (DELTASONE) 10 mg tablet Take 4 tabs daily x 3 days, then 3 tabs x 3 days, 2 tabs x 3 days, then 1 tab x3 days with food. triamcinolone acetonide (KENALOG) 0.1 % cream Apply 1 application to affected area three times daily. Apply sparingly to area for rash/itching. oxyCODONE-acetaminophen (PERCOCET) 5-325 mg tablet pediatric multivitamin without iron chewable (POLY-VITAMINS) chewable tablet Take 1 tablet by mouth once daily. PAST MEDICAL HISTORY: PAST MEDICAL HISTORY Diagnosis Date Acute appendicitis Asthma Attention deficit disorder with hyperactivity(314.01) PAST SURGICAL HISTORY: PAST SURGICAL HISTORY Procedure Laterality Date ARTHROTOMY W/MENISCUS REPAIR KNEE Right 2018 CIRCUMCISION LAPAROSCOPIC APPENDECTOMY 05/25/2015 TONSILLECTOMY AND ADENOIDECTOMY At age 15 FAMILY HISTORY: FAMILY HISTORY Problem Relation Age of Onset other (hyperglycemia [Other]) Mother Cancer Maternal Grandfather hodgkins Diabetes Maternal Grandfather other (diabetic [Other]) Paternal Grandmother other (diabetic [Other]) Paternal Grandfather Emphysema Paternal Grandfather SOCIAL HISTORY: Social Connections: Not on file REVIEW OF SYSTEMS: GENERAL: No fever, chills, weight loss, or fatigue. ENMT: Negative CARDIOVASCULAR:NO CHEST PAIN, PALPITATIONS, ANKLE EDEMA RESPIRATORY: No chronic cough, wheezing, dyspnea, hemoptysis. GENITOURINARY: SEE HPI MUSCULOSKELETAL:NO CHRONIC BACK PAIN, ARTHRITIS, CHRONIC NECK PAIN SKIN: NO VARICOSE VEINS, RASH, ABNORMAL ITCHING HEME/LYMPH/IMMUNE:Negative for prolonged bleeding, bruising easily or swollen nodes NEUROLOGICAL: NO HEADACHES, NUMBNESS, SEIZURES, STROKE DIABETES: no All other systems reviewed and are negative PHYSICAL EXAMINATION: Blood pressure 130/74, pulse 104, temperature 37.1 ?C (98.7 ?F), temperature source Temporal, resp. rate 14, height 165.1 cm (5' 5 ), weight 103 kg (227 lb), SpO2 97 %. GENERAL: WNL nutrition, no deformities, healthy appearing NEURO: Awake, alert and oriented x 3 and Normal gait PSYCH: No signs of depression, anxiety, or agitation ENMT (Ear, Nose, Mouth, Throat): No masses, adenopathy, icterus. Thyroid nonpalpable RESP: NL effort, no retractions or purse-lip breathing. CV: No extremity swelling, varices, edema, pallor, erythema GASTROINTESTINAL: Soft, nontender, nondistended, no masses. HERNIAS: None SKIN: No rash, lesions No palpable lymphadenopathy MUSCULOSKELETAL: Extremities normal. No deformities, edema, clubbing or skin discoloration. PROBLEM LIST REVIEW: Yes LABS: Results for orders placed or performed in visit on 06/08/21 UA DIP, URINE (POC) Result Value Ref Range GLUCOSE UA (POCT) Negative Negative mg/dL BILIRUBIN UA (POCT) Negative Negative KETONE UA (POCT) Negative Negative mg/dL SPECIFIC GRAVITY UA (POCT) >=1.030 1.005 - 1.030 HEMOGLOBIN/BLOOD UA (POCT) Large (A) Negative PH UA (POCT) 5.5 4.5 - 8.0 PROTEIN UA (POCT) 30 (A) Negative mg/dL UROBILINOGEN UA (POCT) 0.2 Normal E.U./dL NITRITE UA (POCT) Negative Negative LEUKOCYTES UA (POCT) Negative Negative COLOR UA (POCT) Jerica CLARITY UA (POCT) Clear URINE CULTURE Specimen: OTHER; Urine Random Result Value Ref Range Specimen Request Specimen received in preservative Culture No growth (<1,000 CFU/ml) PROCEDURES: PVR: 0 ml IMAGING: CT Flank > Known Kidney Stone History no Gross hematuria IMPRESSION/PLAN: 26 year old male with . 1. Hematuria, unspecified type - ICD9: 599.70, ICD10: R31.9 > Known Kidney Stone History no Gross hematuria I spent a total of 30 minutes on the date of the service which included preparing to see the patient, face to face (more content not included)... [facility] Progress note 04-09-2022 Note Date & Type Note Facility 04-09-2022 Note HNO ID: [id number] Author: Rosa Grant LPN Service: ? Author Type: ? Type: Progress Notes Filed: 04/09/2022 3:53 PM Note Text: Verified name and date of . CC Post Void Residual HPI: Robert Foster is a 26 year old male. The patient is here now for an appointment with LAYO Ely, SAMANTHA IREL[place]. Procedure: Explained procedure to patient and verbalizes understanding. Performed a PVR. Patient urinated and instructed to empty bladder as much as possible just prior to having PVR done using bladder ultrasound scanner. Results of scan: 2 mL The patient tolerated the procedure well. Plan: Appointment with Taylor. [facility] History of Present illness Narrative 04-09-2022 Taylor Lopez PA-C - 04/09/2022 3:48 PM EDTRosa Grant LPN - 04/09/2022 2:17 PM EDT Note Date & Type Note Facility 04-09-2022 History of Presen t illness Narrative Images from the original note were not included. [facility] NEW PATIENT CLINIC NOTE SERVICE DATE: 04/09/2022 SERVICE TIME: 3:48 PM NAME: Robert Foster municated back to the requesting physician by way of shared medical record or letter via US mail. CHIEF COMPLAINT: Kidney Stone with hematuria HISTORY OF PRESENT ILLNESS: Robert Foster is a 26 year old Male with PMH including Nephrolithiasis and hematuria presenting with follow up after stone at ER The patient reports he is doing well now and we discussed the small stone can pas at 5.3 mm and gave him Flomax to assist in this FLUIDS: Increase LUTS: DYSURIA: yes URGENCY: Yes FREQUENCY:6 per day NOCTURIA: 2 per night STRAINING TO VOID: Yes EMPTIES COMPLETELY: Yes UTI: No GROSS HEMATURIA: no MICROSCOPIC HEMATURIA: no UA DIPSTICK POSITIVE ONLY: yes Other symptoms: LABS: No results found for: TESTOST No results found for: TESTFREE No results found for: PSA No results found for: HCT MEDICATIONS: tamsulosin (FLOMAX) 0.4 mg Take 1 capsule by mouth daily at bedtime. predniSONE (DELTASONE) 10 mg tablet Take 4 tabs daily x 3 days, then 3 tabs x 3 days, 2 tabs x 3 days, then 1 tab x3 days with food. triamcinolone acetonide (KENALOG) 0.1 % cream Apply 1 application to affected area three times daily. Apply sparingly to area for rash/itching. oxyCODONE-acetaminophen (PERCOCET) 5-325 mg tablet pediatric multivitamin without iron chewable (POLY-VITAMINS) chewable tablet Take 1 tablet by mouth once daily. PAST MEDICAL HISTORY: PAST MEDICAL HISTORY Diagnosis Date Acute appendicitis Asthma Attention deficit disorder with hyperactivity(314.01) PAST SURGICAL HISTORY: PAST SURGICAL HISTORY Procedure Laterality Date ARTHROTOMY W/MENISCUS REPAIR KNEE Right 2018 CIRCUMCISION LAPAROSCOPIC APPENDECTOMY 05/25/2015 TONSILLECTOMY & ADENOIDECTOMY <AGE 12 At age 15 FAMILY HISTORY: FAMILY HISTORY Problem Relation Age of Onset other (hyperglycemia [Other]) Mother Cancer Maternal Grandfather hodgkins Diabetes Maternal Grandfather other (diabetic [Other]) Paternal Grandmother other (diabetic [Other]) Paternal Grandfather Emphysema Paternal Grandfather SOCIAL HISTORY: Social Connections: Not on file REVIEW OF SYSTEMS: GENERAL: No fever, chills, weight loss, or fatigue. ENMT: Negative CARDIOVASCULAR:NO CHEST PAIN, PALPITATIONS, ANKLE EDEMA RESPIRATORY: No chronic cough, wheezing, dyspnea, hemoptysis. GENITOURINARY: SEE HPI MUSCULOSKELETAL:NO CHRONIC BACK PAIN, ARTHRITIS, CHRONIC NECK PAIN SKIN: NO VARICOSE VEINS, RASH, ABNORMAL ITCHING HEME/LYMPH/IMMUNE:Negative for prolonged bleeding, bruising easily or swollen nodes NEUROLOGICAL: NO HEADACHES, NUMBNESS, SEIZURES, STROKE DIABETES: no All other systems reviewed and are negative PHYSICAL EXAMINATION: Blood pressure 130/74, pulse 104, temperature 37.1 C (98.7 F), temperature source Temporal, resp. rate 14, height 165.1 cm (5' 5 ), weight 103 kg (227 lb), SpO2 97 %. GENERAL: WNL nutrition, no deformities, healthy appearing NEURO: Awake, alert and oriented x 3 and Normal gait PSYCH: No signs of depression, anxiety, or agitation ENMT (Ear, Nose, Mouth, Throat): No masses, adenopathy, icterus. Thyroid nonpalpable RESP: NL effort, no retractions or purse-lip breathing. CV: No extremity swelling, varices, edema, pallor, erythema GASTROINTESTINAL: Soft, nontender, nondistended, no masses. HERNIAS: None SKIN: No rash, lesions No palpable lymphadenopathy MUSCULOSKELETAL: Extremities normal. No deformities, edema, clubbing or skin discoloration. PROBLEM LIST REVIEW: Yes LABS: Results for orders placed or performed in visit on 06/08/21 UA DIP, URINE (POC) Result Value Ref Range GLUCOSE UA (POCT) Negative Negative mg/dL BILIRUBIN UA (POCT) Negative Negative KETONE UA (POCT) Negative Negative mg/dL SPECIFIC GRAVITY UA (POCT) >=1.030 1.005 - 1.030 HEMOGLOBIN/BLOOD UA (POCT) Large (A) Negative PH UA (POCT) 5.5 4.5 - 8.0 PROTEIN UA (POCT) 30 (A) Negative mg/dL UROBILINOGEN UA (POCT) 0.2 Normal E.U./dL NITRITE UA (POCT) Negative Negative LEUKOCYTES UA (POCT) Negative Negative COLOR UA (POCT) Jerica CLARITY UA (POCT) Clear URINE CULTURE Specimen: OTHER; Urine Random Result Value Ref Range Specimen Request Specimen received in preservative Culture No growth (<1,000 CFU/ml) PROCEDURES: PVR: 0 ml IMAGING: CT Flank > Known Kidney Stone History no Gross hematuria IMPRESSION/PLAN: 26 year old male with . 1. Hematuria, unspecified type - ICD9: 599.70, ICD10: R31.9 > Known Kidney Stone History no Gross hematuria I spent a total of 30 minutes on the date of the service which included preparing to see the patient, face to face patient care, completing clinical documentation, obtaining and/or reviewing separately obtained history, performing a medically appropriate examination, counseling and educating the patient/family/caregiver, ordering medications, tests, or procedures, and care coordination. LAYO Ely MT, PA-C Verified name and date of . CC Post Void Residual HPI: Robert Foster is a 26 year old male. The patient is here now for an appointment with LAYO Ely MT, PA-COV. Procedure: Explained procedure to patient and verbalizes understanding. Performed a PVR. Patient urinated and instructed to empty bladder as much as possible just prior to having PVR done using bladder ultrasound scanner. Results of scan: 2 mL The patient tolerated the procedure well. Plan: Appointment with Taylor. documented in this encounter [facility] Progress note 06-08-2021 Note Date & Type Note Facility 06-08-2021 Note HNO ID: [id number] Author: Uzma Rhodes APRN.RN RECOVERY Service: ? Author Type: Nurse Practitioner Type: Progress Notes Filed: 06/08/2021 12:29 PM Note Text: Subjective The history is provided by the patient. No speech and language clinician was used. HPI Robert Foster is a 25 year old male who presents today for CC of blood in urine the past 24 hours. Denies any new sexual partners or chance of std, declines testing. No testicular pain or burning with urination H/o kidney stones in the past Denies any severe back pain, just mild BP 118/80 Pulse 78 Temp 36.7 ?C (98.1 ?F) (Tympanic) Resp 16 Wt 102.2 kg (225 lb 3.2 oz) SpO2 98% Social History Tobacco Use - Smoking status: Never Smoker - Smokeless tobacco: Never Used - Tobacco comment: mom and dad smoke outside only, pateint does not smoke Substance Use Topics - Alcohol use: No - Drug use: No PAST MEDICAL HISTORY Diagnosis Date - Acute appendicitis - Attention deficit disorder with hyperactivity(314.01) I have confirmed and edited as necessary, the [facility] Review of Systems Constitutional: Negative for chills and fever. Gastrointestinal: Negative for abdominal pain, nausea and vomiting. Genitourinary: Positive for hematuria. Negative for dysuria, flank pain, frequency and urgency. Objective Physical Exam Vitals and nursing note reviewed. Pulmonary: Effort: Pulmonary effort is normal. Abdominal: General: Abdomen is flat. Bowel sounds are normal. Palpations: Abdomen is soft. Tenderness: There is no abdominal tenderness. There is right CVA tenderness and left CVA tenderness. There is no guarding or rebound. Negative signs include Mendoza's sign and McBurney's sign. Skin: General: Skin is warm and dry. Neurological: Mental Status: He is alert and oriented to person, place, and time. Psychiatric: Mood and Affect: Affect normal. ASSESSMENT/PLAN: 1. Urinary frequency - ICD9: 788.41, ICD10: R35.0 (primary diagnosis) acute - UA positive for hematuria and proteinuria - Send urine for culture No leukocytes Will call if treatment needed - UA DIP, URINE (POC) - URINE CULTURE 2. Gross hematuria - ICD9: 599.71, ICD10: R31.0 Possible kidney stones If pain worsens or unable to void to ED for treatment Follow up Friday with PCP for further evaulation Diagnosis and treatment plan were discussed and questions were answered to the patient's satisfaction. Pt acknowledged understanding of concepts and follow up plan. Specific signs and symptoms that would indicate the need for higher level of care were discussed in detail warranting prompt ER evaluation. Uzma Rhodes APRN.MERCEDES [facility] History of Past illness Narrative 04-06-2010 Note Date & Type Note Facility documented as of this encounter (statuses as of 04/09/2022) [facility] History of Past illness Narrative 04-06-2010 Note Date & Type Note Facility documented as of this encounter (statuses as of 05/02/2022) [facility] History of Past illness Narrative 04-06-2010 Note Date & Type Note Facility documented as of this encounter (statuses as of 05/15/2022) [facility] Evaluation note Note Date & Type Note Facility documented in this encounter [facility] Summary Purpose Family History No Family History Records Found Advance Directives No Advanced Directives Records Found Additional Source Comments Source Comments (unrecognize d section and content) In the event this informatio n is protected by the Federal Confidentiality of Alcohol and Drug Abuse Patient Records regulations: The Federal rules restrict any use of the information to criminally investigate or prosecute any alcohol or drug abuse patient.[facility] event this information is protected by the Federal Confidentiality of Alcohol and Drug Abuse Patient Records regulations: The Federal rules restrict any use of the information to criminally investigate or prosecute any alcohol or drug abuse patient.[facility] the event this information is protected by the Federal Confidentiality of Alcohol and Drug Abuse Patient Records regulations: The Federal rules restrict any use of the information to criminally investigate or prosecute any alcohol or drug abuse patient.[facility] Reason for Visit (unrecogniz ed section and content) Reason Comments Refill Request Reason Comments Patient Question (unrecognized sect ion and content) No Status Records Found INFORMATION SOURCE (unrecogn ized section and content) FOR RECORDS PERTAINING TO PATIENTS WHO ARE OR HAVE BEEN ENROLLED IN A CHEMICAL DEPENDENCY/SUBSTANCEABUSE PROGRAM, SOME INFORMATION MAY BE OMITTED. This clinical summary was aggregated from multiple sources. Caution should be exercised in using it in the provision of clinical care. This summary normalizes information from multiple sources, and as a consequence, information in this document may materially change the coding, format and clinical context of patient data. In addition, data may be omitted in some cases. CLINICAL DECISIONS SHOULD BE BASED ON THE PRIMARY CLINICAL RECORDS. [facility]. provides no warranty or guarantee of the accuracy or completeness of information in this document.
== END 2023-06-19 17:59 | disposition home or self-care (01) ==
PROVIDERS: Emergency Provider Student in an Organized Health Care Education/Training Program; PCP Family Medicine; Visit Provider Student in an Organized Health Care Education/Training Program
DX: N20.1 Calculus of ureter (principal); N12 Tubulo-interstitial nephritis, not specified as acute or chronic; R31.9 Hematuria, unspecified; Z90.49 Acquired absence of other specified parts of digestive tract
CPT/HCPCS: 74176; 80048; 81001; 85025; 87086; 96365; 96375; 99283; J7030; A4216; J2405

== ENCOUNTER → 2023-07-02 | Outpatient (CLI) | payer MEDICAID, SELFPAY ==
--- NOTE | 2023-07-02 13:53 | ECHOD_ITS ---
Reason For Study: CHEST PAIN Procedure This was a 2D Doppler, Color Flow transthoracic echocardiogram. Exam performed in department. Left Ventricle Normal LV size. Left ventricular systolic function is normal. The left ventricular ejection fraction is 65 %. No regional wall motion abnormalities noted. Right Ventricle Normal RV size. Normal systolic function. Atria Normal left atrium. Normal right atrium. Mitral Valve Normal mitral valve. Tricuspid Valve Normal tricuspid valve. Aortic Valve Normal aortic valve. Trisinus/trileaflet aortic valve. Pulmonic Valve Normal pulmonic valve. Great Vessels Normal aortic root. The pulmonary artery is normal size. Normal inferior vena cava. Pericardium/Pleural No pericardial effusion. MMode/2D Measurements & Calculations LVIDd: 4.2 cm IVSd: 1.0 cm LVOT diam: 2.1 cm LVIDs: 2.2 cm LVPWd: 0.97 cm LVOT area: 3.3 cm2 RVDd: 3.0 cm FS: 47.6 % Ao root diam: 2.9 cm LAV(MOD-bp): 31.8 ml LVAd ap4: 31.6 cm2 LAV(MOD-bp) Indexed: 15.0 ml/m2 LVLd ap4: 8.7 cm LAV(MOD-sp2): 31.5 ml EDV(MOD-sp4): 94.2 ml LAV(MOD-sp4): 30.4 ml EDV(sp4-el): 97.6 ml LVAs ap4: 15.2 cm2 LVLs ap4: 7.0 cm ESV(MOD-sp4): 29.3 ml ESV(sp4-el): 28.0 ml EF(MOD-sp4): 68.9 % EF(sp4-el): 71.3 % LVAd ap2: 30.6 cm2 SV(MOD-sp4): 64.9 ml SV(MOD-sp2): 54.6 ml LVLd ap2: 8.7 cm EDV(MOD-sp2): 87.8 ml EDV(sp2-el): 91.5 ml LVAs ap2: 16.4 cm2 LVLs ap2: 6.7 cm ESV(MOD-sp2): 33.2 ml ESV(sp2-el): 34.0 ml EF(MOD-sp2): 62.2 % SV(sp4-el): 69.6 ml LA dimension(2D): 3.0 cm LA A4 area: 14.1 cm2 RA A4 area: 11.0 cm2 TAPSE: 1.9 cm Time Measurements MV dec time: 0.23 sec Doppler Measurements & Calculations MV E max yury: 79.9 cm/sec Lat Peak E' Yury: 13.7 cm/sec Med Peak E' Yury: 13.1 cm/sec MV A max yury: 54.5 cm/sec E/E' lat: 5.8 E/E' med: 6.1 MV E/A: 1.5 Ao V2 max: 128.6 cm/sec LV V1 max: 121.6 cm/sec MV dec slope: 346.9 cm/sec2 Ao max P.6 mmHg LV V1 max P.9 mmHg Ao V2 mean: 88.6 cm/sec LV V1 mean P.2 mmHg Ao mean P.6 mmHg LV V1 mean: 83.9 cm/sec Ao V2 VTI: 23.5 cm LV V1 VTI: 21.8 cm AV (velocity ratio): 0.93 GEORGINA(I,D): 3.1 cm2 GEORGINA(V,D): 3.1 cm2 SV(LVOT): 72.2 ml PA V2 max: 101.7 cm/sec PA max PG (full): 2.5 mmHg ECHO/Echo Complete Interpretation Summary Normal LV size. Left ventricular systolic function is normal. The left ventricular ejection fraction is 65 %. Structurally normal valves. Ordering Physician: Kar Troncoso Referring Physician: Kar Troncoso Performed By: Nidhi Barron RDCS
--- OUTSIDE RECORDS SUMMARY | 2023-07-02 14:22 | XMS RPT_ITS | CCD ---
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 Name Role Phone Unavailable Primary Care Provider Unavailabl e Allergies Allergy Classification Reported Allergen(s) Allergy Type Date of Onset Reaction(s) Facility (3 sources) [facility] Allergy 11-23-2016 Ana Castellanos [facility] Medications Completed/Discontinued Medications Medication Drug Class(es) [...] Time Vital Sign Value Performing Clinician Faci lity 04-09-2022 14:20-0400 Body height 165.1 cm Gaurav Lopez PA-C Work Phone: [facility] 04-09-2022 14:20-0400 Body temperature 98.71 [degF] Gaurav Lopez PA-C Work Phone: [facility] 04-09-2022 14:20-0400 Body weight 102.97 kg Gaurav Lopez PA-C Work Phone: [facility] 04-09-2022 14:20-0400 Diastolic blood pressure 74 mm[Hg] Gaurav Lopez PA-C Work Phone: [facility] 04-09-2022 14:20-0400 Heart rate 104 /min Gaurav Lopez PA-C Work Phone: [facility] 04-09-2022 14:20-0400 Respiratory rate 14 /min Gaurav Lopez PA-C Work Phone: [facility] 04-09-2022 14:20-0400 SaO2% (BldA) [Mass fraction] 97 % Gaurav Lopez PA-C Work Phone: [facility] 04-09-2022 14:20-0400 Systolic blood pressure 130 mm[Hg] Gaurav Lopez PA-C Work Phone: [facility] Encounters Encounter Date Encounter Type Care Provider Facility Start: 05-15-2022 Telephone encounter Gaurav Arroyo cornell PA-C Work Phone: Urology Procedures Date Procedure Procedure Detail Performing Clinician Start: 04-09-2022 Urnls dip stick/tabl et rgnt auto w/o microscopy Gaurav Lopez PA-C Work Phone: Plan of Treatment Date Care Activity Detail Author Start: 02-14-2022 Influenza vaccination INFLUENZA (#1) [facility] Start: 06-16-2021 DEPRESSION ASSESSMENT DEPRESSION ASSESSMENT [facility] Start: 01-17-2018 Urine microalbumin profile DTAP,TDAP,TD (5 - Td or Tdap) [facility] Start: 2014 HEPATITIS C SCREENING HEPATITIS C SCREENING [facility] Start: 2014 HIV SCREENING HIV SCREENING [facility] Start: 05-19-2012 HPV VACCINE (2 - Male 3-dose series) HPV VACCINE (2 - Male 3-dose series) [facility] Start: 2010 PEDS TO ADULT TRANSITION ANNUAL ASSESSMENT PEDS TO ADULT TRANSITION ANNUAL ASSESSMENT [facility] Start: 2008 PEDS TO ADULT TRANSITION INITIAL DISCUSSION PEDS TO ADULT TRANSITION INITIAL DISCUSSION [facility] Start: 1996 COVID-19 VACCINE (#1) COVID-19 VACCINE (#1) [facility] POST VOID RESIDUAL POST VOID RES IDUAL Procedures Routine Hematuria, unspecified type Ordered: 04/09/2022 [facility] Work Phone: Immunizations Immunization Date Immunization Notes Care Provider Yordy garza 04-21-2012 human papilloma viru s vaccine, quadrivalent Gaurav Lopez PA-C Work Phone: [facility] 04-21-2012 influenza virus vaccine, unspecified formulation Gaurav Lopez PA-C Work Phone: [facility] 03-18-2009 influenza virus vaccine, unspecified formulation Gaurav Lopez PA-C Work Phone: [facility] Work Phone: 05-02-2008 influenza virus vaccine, live, attenuated, for intranasal use Gaurav Lopez PA-C Work Phone: [facility] Work Phone: 01-18-2008 Meningococcal, MCV4, unspecified conjugate formulation(groups A, C, Y and W-135) Gaurav Lopez PA-C Work Phone: [facility] 01-18-2008 tetanus toxoid, redu malika diphtheria toxoid, and acellular pertussis vaccine, adsorbed Gaurav Lopez PA-C Work Phone: [facility] 01-18-2008 varicella virus vaccine Bran don Lopez PA-C Work Phone: [facility] 02-24-2002 diphtheria, tetanus toxoids and acellular pertussis vaccine Gaurav Lopez PA-C Work Phone: [facility] Work Phone: 02-24-2002 measles, mumps and rubella virus vaccine Gaurav Lopez PA-C Work Phone: [facility] Work Phone: 02-24-2002 poliovirus vaccine, inactivated Gaurav Lopez PA-C Work Phone: [facility] Work Phone: 10-04-1997 diphtheria, tetanus toxoids and acellular pertussis vaccine Gaurav Lopez PA-C Work Phone: [facility] Work Phone: 10-04-1997 haemophilus influenz ae type b vaccine, HbOC conjugate Gaurav Lopez PA-C Work Phone: [facility] Work Phone: 10-04-1997 poliovirus vaccine, inactivated Gaurav Lopez PA-C Work Phone: [facility] Work Phone: 07-28-1997 measles, mumps and rubella virus vaccine Gaurav Lopez PA-C Work Phone: [facility] Work Phone: 07-28-1997 varicella virus vaccine Bran don Lopez PA-C Work Phone: [facility] Work Phone: 01-04-1997 diphtheria, tetanus toxoids and acellular pertussis vaccine Gaurav Lopez PA-C Work Phone: [facility] Work Phone: 01-04-1997 haemophilus influenz ae type b vaccine, HbOC conjugate Gaurav Lopez PA-C Work Phone: [facility] Work Phone: 01-04-1997 hepatitis B vaccine, pediatric or pediatric/adolescent dosage Gaurav Lopez PA-C Work Phone: [facility] Work Phone: 1996 diphtheria, tetanus toxoids and acellular pertussis vaccine Gaurav Lopez PA-C Work Phone: [facility] Work Phone: 1996 haemophilus influenz ae type b vaccine, HbOC conjugate Gaurav Lopez PA-C Work Phone: [facility] Work Phone: 1996 poliovirus vaccine, inactivated Gaurav Lopez PA-C Work Phone: [facility] Work Phone: 1996 Tetramune Gaurav Lopez PA-C Work Phone: [facility] Work Phone: 1996 diphtheria, tetanus toxoids and acellular pertussis vaccine Gaurav Lopez PA-C Work Phone: [facility] Work Phone: 1996 haemophilus influenz ae type b vaccine, HbOC conjugate Gaurav Lopez PA-C Work Phone: [facility] Work Phone: 1996 hepatitis B vaccine, pediatric or pediatric/adolescent dosage Gaurav Lopez PA-C Work Phone: [facility] Work Phone: 1996 poliovirus vaccine, inactivated Gaurav Lopez PA-C Work Phone: [facility] Work Phone: 1996 Tetramune Gaurav Lopez PA-C Work Phone: [facility] Work Phone: 1996 hepatitis B vaccine, pediatric or pediatric/adolescent dosage Gaurav Lopez PA-C Work Phone: [facility] Work Phone: Payers Date Payer Category Payer Private Health Insurance [facility] [employer] [employer] [id number] 2022-Present [phone] [address] [place] [address] HMO [id number] 2015 Medicaid [id number] Social History Date Type Detail Facility Start: 11-28-2010 Tobacco smoking stat us LAIS Never smoked tobacco [facility] Work Phone: Start: 11-28-2010 Tobacco use and exposure Smokeless tobacco non-user [facility] Work Phone: Start: 04-09-2022 Alcohol intake Ex-drinker (finding) [facility] Start: 05-13-2007 Tobacco Comment mom and dad jose de jesus freedman outside only [facility] Start: 1996 Sex Assigned At Not on file C [facility] Start: 03-30-2022 End: 04-09-2022 Exposure to SARS-CoV-2 (event) Not sure [facility] Note 05-15-2022 Telephone Encounter - Laurie Bello - 05/15/2022 12:04 PM ESTTelephone Encounter - Gaurav Lopez PA-C - 05/15/2022 11:41 AM ESTTelephone [...] ER. Laurie Bello I recommend going to [facility] ER, sounds like could be a stone moving, needs medication in IV fluids and imaging no of which I can do in office. If he goes to [facility] they will not do much but [...] that radiates to his groin. Rates pain 8/10. Patient states he gets frequent kidney stones. Patient asking for advice. Please contact him back at [phone]. documented in this encounter [facility] History of Present illness Narrative 04-09-2022 Gaurav Lopez PA-C - 04/09/2022 3:48 PM EDTKisonyacamacho Rudy GOMES - 04/09/2022 2:17 PM EDT Note Date & Type Note Facility 04-09-2022 History of Presen t illness Narrative Images from the original note were not included. [facility] NEW PATIENT CLINIC NOTE SERVICE DATE: 04/09/2022 [...] tolerated the procedure well. Plan: Appointment with Gaurav. documented in this encounter [facility] History of Past illness Narrative 04-06-2010 Note Date & Type Note Facility documented as of this encounter (statuses as of 04/09/2022) [facility] History of Past illness Narrative 04-06-2010 Note Date & Type Note Facility documented as of this encounter (statuses as of 05/02/2022) [facility] History of Past illness Narrative 04-06-2010 Note Date & Type Note Facility documented as of this encounter (statuses as of 05/15/2022) [facility] Evaluation note Note Date & Type Note Facility documented in this encounter [facility] Summary Purpose Family History No Family [...] or prosecute any alcohol or drug abuse patient.[facility] the event this information is protected by the Federal Confidentiality of Alcohol and Drug Abuse Patient Records regulations: The Federal rules restrict any use of the information to criminally investigate or prosecute any alcohol or drug abuse patient.[facility] the event this information is protected by the Federal Confidentiality of Alcohol and Drug Abuse Patient Records regulations: The Federal rules restrict any use of the information to criminally investigate or prosecute any alcohol or drug abuse patient.[facility] Reason for Visit (unrecogniz ed section [...] BE BASED ON THE PRIMARY CLINICAL RECORDS. [employer] provides no warranty or guarantee of the accuracy or completeness of information in this document.
== END | disposition home or self-care (01) ==
LOC: CVS 13:52
PROVIDERS: PCP Family Medicine; Referring Provider Family Medicine; Visit Provider Family Medicine
DX: R07.9 Chest pain, unspecified (principal)
CPT/HCPCS: 93306